=== PATIENT | female | born 1940 | race Hispanic/Latino ===

== ENCOUNTER 2018-02-19 23:51 | Emergency (ER) | payer MEDICARE ==
[~2018-02-19 23:51] MED LIST: ASPI-1114 PO; ATOR20TA65 PO; BUME1TAB12 PO; CARV12.511 PO; CITRACAL + D3 PO; FE F1CAP8 PO; FLUT16H NASAL; FLUT1AER IH; GLIM1TAB2 PO; LATA2.5D2 OU; LEVO25TA54 PO; LINA5TAB PO; MONT10TA24 PO; ONE A DAY MVI PO; RIVA15TA PO
[2018-02-20 00:10] LABS: BASOPHILS % (AUTO) 0.2 % (0.0-5.0); EOSINOPHILS % (AUTO) 1.7 % (0.0-8.0); HEMATOCRIT 32.6 % (36-48); LYMPHOCYTES % (AUTO) 8.7 % (21.0-51.0); MEAN CORPUSCULAR HEMOGLOBIN 32.3 pg (27.0-33.0); MEAN CORPUSCULAR HGB CONC 34.5 g/dL (32.0-36.0); MEAN CORPUSCULAR VOLUME 93.5 fL (79-99); MONOCYTES % (AUTO) 1.1 % (3.0-13.0); NEUTROPHILS % (AUTO) 88.3 % (40.0-77.0); PLATELET COUNT (AUTO) 143 K/uL (130-400); RED BLOOD CELL COUNT(AUTO) 3.49 MIL/uL (4.00-5.50); RED CELL DISTRIBUTION WIDTH 12.1 % (11.0-15.5); WHITE BLOOD COUNT (AUTO) 9.6 K/uL (4.8-10.8)
[2018-02-20] MEDS ORDERED: SODIUM CHLORIDE 0.9% 1000ML 1,000 ML IV ONE (00:23)
[2018-02-20] MEDS ORDERED: CEFTRIAXONE SODIUM 2 GM VIAL ONE (00:24)
[2018-02-20] MEDS ORDERED: ACETAMINOPHEN EXTRA STRENGTH 500 MG TABLET ONE (00:24)
[2018-02-20 00:28] LABS: ALBUMIN 3.8 g/dL (3.5-5.0); BILIRUBIN,DIRECT 0.1 mg/dL (0.0-0.3); BILIRUBIN,TOTAL 0.5 mg/dL (0.2-1.0); CREATININE 3.3 mg/dL (0.5-1.5); POTASSIUM 4.1 mmol/L (3.5-5.1); TOTAL PROTEIN, SERUM 7.9 g/dL (6.0-8.3)
[2018-02-20] MEDS ORDERED: ONDANSETRON HCL 4 MG/2 ML VIAL ONE (00:45)
[2018-02-20 01:50] LABS: APPEARANCE,URINE Clear (CLEAR); BILIRUBIN,URINE Negative (NEGATIVE); COLOR,URINE Yellow (YELLOW); GLUCOSE, URINE (UA) Negative (NEGATIVE); KETONES,URINE Negative (NEGATIVE); LEUKOCYTE ESTERASE ,URINE Trace (NEGATIVE); NITRATE,URINE Negative (NEGATIVE); OCCULT BLOOD,URINE Negative (NEGATIVE); PH,URINE 7.5 (5.0-8.0); PROTEIN,URINE POS 1+ (NEGATIVE); UROBILINOGEN,URINE 0.2 mg/dL (0.2-1.0)
[2018-02-20 02:04] LABS: BACTERIA,URINE None Seen /HPF (None Seen); MUCUS,URINE Few LPF (None Seen); RBC,URINE None Seen /HPF (0-1); SQUAMOUS EPITHELIAL CELL,UR Few /HPF (0-2); WBC,URINE 0-1 /HPF (0-1)
== END 2018-02-20 02:43 | disposition home or self-care (01) ==
LOC: EDH 23:51
DX: I12.9 Hypertensive chronic kidney disease with stage 1 through stage 4 chronic kidney disease, or unspecified chronic kidney disease (principal); E11.22 Type 2 diabetes mellitus with diabetic chronic kidney disease; N18.9 Chronic kidney disease, unspecified; E86.0 Dehydration; K52.9 Noninfective gastroenteritis and colitis, unspecified; I25.10 Atherosclerotic heart disease of native coronary artery without angina pectoris; J44.9 Chronic obstructive pulmonary disease, unspecified
CPT/HCPCS: 36415; 71045; 74176; 80048; 80076; 81001; 83690; 84484; 85025; 87040; 87804 ×2; 93005; 96361; 96374; 96375; 99285; J0696; J2405; J7030

== ENCOUNTER → 2018-12-31 | Outpatient (CLI) | payer MEDICARE | END | disposition home or self-care (01) | LOC: RAH 09:28 | PROVIDERS: ATTEND Family Medicine | DX: R10.9 Unspecified abdominal pain (principal) | CPT/HCPCS: 76700 ==

== ENCOUNTER 2019-01-02 17:16 | Emergency (ER) | payer MEDICARE ==
[2019-01-02 18:05] LABS: BASOPHILS % (AUTO) 0.6 % (0.0-5.0); EOSINOPHILS % (AUTO) 4.7 % (0.0-8.0); HEMATOCRIT 25.7 % (36-48); LYMPHOCYTES % (AUTO) 22.2 % (21.0-51.0); MEAN CORPUSCULAR HEMOGLOBIN 32.5 pg (27.0-33.0); MEAN CORPUSCULAR HGB CONC 33.5 g/dL (32.0-36.0); MEAN CORPUSCULAR VOLUME 97.1 fL (79-99); MONOCYTES % (AUTO) 7.4 % (3.0-13.0); NEUTROPHILS % (AUTO) 65.1 % (40.0-77.0); PLATELET COUNT (AUTO) 136 K/uL (130-400); RED BLOOD CELL COUNT(AUTO) 2.64 MIL/uL (4.00-5.50); RED CELL DISTRIBUTION WIDTH 12.4 % (11.0-15.5); WHITE BLOOD COUNT (AUTO) 6.9 K/uL (4.8-10.8)
[2019-01-02 18:25] LABS: ALBUMIN 3.4 g/dL (3.5-5.0); BILIRUBIN,TOTAL 0.4 mg/dL (0.2-1.0); CREATININE 3.7 mg/dL (0.5-1.5); POTASSIUM 4.8 mmol/L (3.5-5.1); TOTAL PROTEIN, SERUM 6.5 g/dL (6.0-8.3)
[2019-01-02 19:25] LABS: APPEARANCE,URINE Clear (CLEAR); BILIRUBIN,URINE Large (NEGATIVE); COLOR,URINE Dark Yellow (YELLOW); GLUCOSE, URINE (UA) Negative (NEGATIVE); KETONES,URINE Negative (NEGATIVE); LEUKOCYTE ESTERASE ,URINE Trace (NEGATIVE); NITRATE,URINE Positive (NEGATIVE); OCCULT BLOOD,URINE Negative (NEGATIVE); PH,URINE 6.5 (5.0-8.0); PROTEIN,URINE Negative (NEGATIVE)
[2019-01-02 19:37] LABS: MUCUS,URINE Few LPF (None Seen)
[2019-01-02 19:42] LABS: CALCIUM OXALATE CRYSTALS,UR Few /LPF (None Seen)
[2019-01-02 19:43] LABS: BACTERIA,URINE Moderate /HPF (None Seen)
[2019-01-02] MEDS ORDERED: MAG HYDROX/AL HYDROX/SIMETH ES 30 ML SUSP UDCUP ONE (20:33)
[2019-01-02] MEDS ORDERED: LIDOCAINE HCL 2% VISCOUS 15 ML UDCUP ONE (20:33)
== END 2019-01-02 21:42 | disposition home or self-care (01) ==
LOC: EDH 17:16
DX: K29.00 Acute gastritis without bleeding (principal); J44.9 Chronic obstructive pulmonary disease, unspecified; E10.9 Type 1 diabetes mellitus without complications; I10 Essential (primary) hypertension; I25.10 Atherosclerotic heart disease of native coronary artery without angina pectoris; Z90.710 Acquired absence of both cervix and uterus; Z98.890 Other specified postprocedural states; Z87.891 Personal history of nicotine dependence
CPT/HCPCS: 36415; 74176; 80053; 81001; 84484; 85025; 86677; 93005; 96360; 96361

== ENCOUNTER → 2019-02-22 | Outpatient (CLI) | payer MEDICARE | END | disposition home or self-care (01) | LOC: RAH 10:47 | PROVIDERS: ATTEND Family Medicine | DX: E11.43 Type 2 diabetes mellitus with diabetic autonomic (poly)neuropathy (principal); R10.9 Unspecified abdominal pain; R14.0 Abdominal distension (gaseous) | CPT/HCPCS: 78264; A9541 ==

== ENCOUNTER 2019-06-07 19:51 | Inpatient (IN) | payer MEDICARE ==
[~2019-06-07] VITALS: Ht 157.5 cm; Wt 71.8 kg
[~2019-06-07 19:51] MED LIST changes: -BUME1TAB12 PO; +BUME1TAB6 PO
[2019-06-07 20:40] LABS: BASOPHILS % (AUTO) 0.6 % (0.0-5.0); HEMATOCRIT 29.9 % (36-48); LYMPHOCYTES % (AUTO) 25.1 % (21.0-51.0); MEAN CORPUSCULAR HEMOGLOBIN 32.6 pg (27.0-33.0); MEAN CORPUSCULAR HGB CONC 34.2 g/dL (32.0-36.0); MEAN CORPUSCULAR VOLUME 95.2 fL (79-99); MONOCYTES % (AUTO) 8.6 % (3.0-13.0); NEUTROPHILS % (AUTO) 64.7 % (40.0-77.0); PLATELET COUNT (AUTO) 125 K/uL (130-400); RED BLOOD CELL COUNT(AUTO) 3.14 MIL/uL (4.00-5.50); RED CELL DISTRIBUTION WIDTH 13.9 % (11.0-15.5); WHITE BLOOD COUNT (AUTO) 6.2 K/uL (4.8-10.8)
[2019-06-07 21:01] LABS: B-TYPE NATRIURETIC PEPTIDE 1110 pg/mL (0-100); INR 1.18 (0.85-1.15); PARTIAL THROMBOPLASTIN TIME 31.4 SEC (26.3-35.5); PROTHROMBIN TIME 12.3 SEC (9.6-11.6)
[2019-06-07 21:02] LABS: APPEARANCE,URINE Clear (CLEAR); BILIRUBIN,URINE Negative (NEGATIVE); COLOR,URINE Yellow (YELLOW); GLUCOSE, URINE (UA) Negative (NEGATIVE); KETONES,URINE Negative (NEGATIVE); LEUKOCYTE ESTERASE ,URINE Small (NEGATIVE); NITRATE,URINE Negative (NEGATIVE); OCCULT BLOOD,URINE Small (NEGATIVE); PH,URINE 7.5 (5.0-8.0); PROTEIN,URINE 300 mg/dL (NEGATIVE); UROBILINOGEN,URINE 0.2 mg/dL (0.2-1.0)
[2019-06-07 21:04] LABS: ALBUMIN 3.2 g/dL (3.5-5.0); BILIRUBIN,TOTAL 0.4 mg/dL (0.2-1.0); CREATININE 2.9 mg/dL (0.5-1.5); POTASSIUM 5.3 mmol/L (3.5-5.1); TOTAL PROTEIN, SERUM 6.5 g/dL (6.0-8.3)
[2019-06-07 21:10] LABS: BACTERIA,URINE Few /HPF (None Seen); MUCUS,URINE Few LPF (None Seen)
[2019-06-07] MEDS ORDERED: CLONIDINE HCL 0.1 MG TABLET ONE (21:11)
[2019-06-07] MEDS ORDERED: HYDRALAZINE HCL 25 MG TABLET ONE (21:51)
[2019-06-07] MEDS ORDERED: SODIUM CHLORIDE 0.9% 250 ML IV ONE (22:29)
[2019-06-08] MEDS ORDERED: HYDRALAZINE HCL 20 MG/ML VIAL IV PRN (00:30)
[2019-06-08] MEDS ORDERED: ASPIRIN 325 MG TABLET ONE (08:21)
[2019-06-08] MEDS ORDERED: HEPARIN SODIUM 5000UNIT/ML 1ML VIAL ONE (08:21)
[2019-06-08] MEDS ORDERED: FAMOTIDINE/PF 20 MG/2 ML VIAL IV ONE (08:22)
[2019-06-08] MEDS ORDERED: HYDRALAZINE HCL 20 MG/ML VIAL ONE (08:39)
[2019-06-08] MEDS: FAMOTIDINE/PF 20 MG/2 ML VIAL IV SCH (09:00)
[2019-06-08] MEDS: ASPIRIN 325 MG TABLET PO SCH (09:00)
[2019-06-08 19:40] VITALS: BP 175/76
[2019-06-08] MEDS: LABETALOL HCL 100 MG TABLET PO SCH (20:48)
[2019-06-08] MEDS: HEPARIN SODIUM 5000UNIT/ML 1ML VIAL SQ SCH (20:49)
[2019-06-08 23:29] VITALS: BP 150/57
[2019-06-09 00:58] VITALS: BP 176/58
[2019-06-09 03:48] VITALS: BP 128/51
[2019-06-09 08:00] VITALS: BP 138/56
[2019-06-09] MEDS: LABETALOL HCL 100 MG TABLET PO SCH ×2 (09:34→14:00)
[2019-06-09] MEDS: ASPIRIN 325 MG TABLET PO SCH (09:34)
[2019-06-09] MEDS: FAMOTIDINE/PF 20 MG/2 ML VIAL IV SCH (09:34)
[2019-06-09] MEDS: HEPARIN SODIUM 5000UNIT/ML 1ML VIAL SQ SCH (09:36)
[2019-06-09] MEDS ORDERED: AMLODIPINE BESYLATE 5 MG TAB PO SCH (11:45)
[2019-06-09 12:00] VITALS: BP 132/84
[2019-06-09 12:39] LABS: CREATININE 2.8 mg/dL (0.5-1.5); POTASSIUM 5.1 mmol/L (3.5-5.1)
--- NOTE | 2019-06-09 15:18 | NUR ---
PATIENT SIGNED OUT AMA. SHE VOICED THAT SHE HAD COME IN WITH HYPERTENSION AND NOW THAT HER BP IS BETTER THERE IS NO REASON FOR HER TO STAY. I INFORMED HER THAT MD HAD ORDERED FOR CARDIO AND NEPHRO TO BE CONSULTED BUT SHE SAID THAT SHE ALREADY KNOWS ABOUT HER CAROTID STENOSIS AND HER ELEVATED CREATININE AND THAT SHE CAN JUST F/U WITH DR. MARR AND DR. ANDERSEN OUTPATIENT. INFORMED DR. HENDRIX. ABOUT THIS. PIV REMOVED. TIP WAS INTACT. TELE PACK REMOVED AND RETURNED. ALL BELONGINGS WERE PACKED.
[2019-06-09] MEDS ORDERED: ATORVASTATIN CALCIUM 40 MG TABLET PO SCH (21:00)
== END 2019-06-09 14:50 | disposition left against medical advice (07) | DRG 305 ==
LOC: EDH 19:51 → EDHIP 06-08 00:01 → 4CH 06-08 18:46
PROVIDERS: ADMIT Internal Medicine; ATTEND Internal Medicine
DX: I16.0 Hypertensive urgency (principal); N18.5 Chronic kidney disease, stage 5; E87.70 Fluid overload, unspecified; I12.0 Hypertensive chronic kidney disease with stage 5 chronic kidney disease or end stage renal disease; I25.10 Atherosclerotic heart disease of native coronary artery without angina pectoris; Z95.1 Presence of aortocoronary bypass graft; F41.1 Generalized anxiety disorder; Z53.21 Procedure and treatment not carried out due to patient leaving prior to being seen by health care provider; I65.29 Occlusion and stenosis of unspecified carotid artery; Z82.0 Family history of epilepsy and other diseases of the nervous system; Z82.3 Family history of stroke; Z82.49 Family history of ischemic heart disease and other diseases of the circulatory system; Z82.5 Family history of asthma and other chronic lower respiratory diseases; Z83.3 Family history of diabetes mellitus; Z87.891 Personal history of nicotine dependence
CPT/HCPCS: 36415; 70450; 71045; 76770; 80048; 80053; 81001; 82550; 82948; 83880; 84484; 85025; 85610; 85730; 93005; 93880; G0378; J0360; J1644; J3490; J7030

== ENCOUNTER 2019-08-15 05:10 | Inpatient (IN) | payer MEDICARE ==
[2019-08-15] VITALS (10 sets, daily range): BP systolic 153–175; BP diastolic 6–109
[~2019-08-15] VITALS: Ht 165.1 cm; Wt 72.6 kg
[~2019-08-15 05:10] MED LIST changes: -GLIM1TAB2 PO; +GLIM1TAB3 PO
[2019-08-15 06:12] LABS: APPEARANCE,URINE Clear (CLEAR); BILIRUBIN,URINE Negative (NEGATIVE); COLOR,URINE Yellow (YELLOW); GLUCOSE, URINE (UA) Negative (NEGATIVE); KETONES,URINE Negative (NEGATIVE); LEUKOCYTE ESTERASE ,URINE Trace (NEGATIVE); NITRATE,URINE Negative (NEGATIVE); OCCULT BLOOD,URINE Trace (NEGATIVE); PROTEIN,URINE POS 1+ mg/dL (NEGATIVE); UROBILINOGEN,URINE 0.2 mg/dL (0.2-1.0)
[2019-08-15 06:13] LABS: BASOPHILS % (AUTO) 0.5 % (0.0-5.0); EOSINOPHILS % (AUTO) 2.4 % (0.0-8.0); HEMATOCRIT 25.7 % (36-48); LYMPHOCYTES % (AUTO) 16.2 % (21.0-51.0); MEAN CORPUSCULAR HEMOGLOBIN 34.3 pg (27.0-33.0); MEAN CORPUSCULAR HGB CONC 34.9 g/dL (32.0-36.0); MEAN CORPUSCULAR VOLUME 98.2 fL (79-99); MONOCYTES % (AUTO) 8.5 % (3.0-13.0); NEUTROPHILS % (AUTO) 72.4 % (40.0-77.0); PLATELET COUNT (AUTO) 119 K/uL (130-400); RED BLOOD CELL COUNT(AUTO) 2.62 MIL/uL (4.00-5.50); RED CELL DISTRIBUTION WIDTH 12.9 % (11.0-15.5); WHITE BLOOD COUNT (AUTO) 6.5 K/uL (4.8-10.8)
[2019-08-15 06:21] LABS: ALBUMIN 3.1 g/dL (3.5-5.0); BILIRUBIN,TOTAL 0.5 mg/dL (0.2-1.0); CREATININE 3.7 mg/dL (0.5-1.5); INR 1.21 (0.85-1.15); PARTIAL THROMBOPLASTIN TIME 33.9 SEC (26.3-35.5); POTASSIUM 5.1 mmol/L (3.5-5.1); PROTHROMBIN TIME 12.6 SEC (9.6-11.6); TOTAL PROTEIN, SERUM 6.5 g/dL (6.0-8.3)
[2019-08-15 06:45] LABS: B-TYPE NATRIURETIC PEPTIDE 2840 pg/mL (0-100)
[2019-08-15 06:48] LABS: BACTERIA,URINE Rare /HPF (None Seen); RBC,URINE 0-1 /HPF (0-1); SQUAMOUS EPITHELIAL CELL,UR Rare /HPF (0-2); WBC,URINE 0-1 /HPF (0-1)
[2019-08-15] MEDS ORDERED: ACETAMINOPHEN 325 MG TAB PO PRN ×3 (08:15→20:45)
[2019-08-15] MEDS ORDERED: ONDANSETRON HCL 4 MG/2 ML VIAL IVP PRN (08:15)
[2019-08-15] MEDS ORDERED: BUMETANIDE 0.25 MG/ML 10 ML 40 ML IV SCH (08:15)
[2019-08-15] MEDS ORDERED: HYDRALAZINE HCL 20 MG/ML VIAL IV PRN ×2 (08:15→09:15)
[2019-08-15] MEDS ORDERED: MORPHINE SULFATE 2 MG/ML 1ML SYG IV PRN (09:15)
[2019-08-15] MEDS ORDERED: ONDANSETRON HCL 4 MG/2 ML VIAL IV PRN (09:15)
[2019-08-15] MEDS: FAMOTIDINE/PF 20 MG/2 ML VIAL IV SCH ×2 (09:20→14:22)
[2019-08-15] MEDS ORDERED: DEXTROSE 50%-WATER 50 ML DISP.SYRIN IV PRN (10:00)
[2019-08-15] MEDS ORDERED: GLUCAGON 1MG KIT 1 MG ML IM PRN (10:00)
--- NOTE | 2019-08-15 10:00 | NUR ---
ADMISSION RECEIVED PT FROM ER, AMBULATING FROM GURNEY TO BATHROOM AND BACK TO BED, GAIT SLOW BUT STEADY WITH ASSIST, PT DOES C/O DYSPNEA ON EXERTION BUT DENIES PAIN, DIZZINESS OR LIGHTHEADEDNESS. PT IS A&OX3, CALM COOPERATIVE AND DOES NOT APPEAR TO BE IN ANY DISTRESS NOR ANY NEURO DEFICITS PRESENT. PT IS NPO FOR PENDING DIALYSIS CATHETER PLACEMENT BY I.R. CALL LIGHT WITHIN REACH, FAMILY AT BEDSIDE.
[2019-08-15] MEDS: INSULIN HUMULIN R 100 UNIT/ML 3ML SQ SCH ×3 (11:30→21:00)
[2019-08-15] MEDS ORDERED: INSU100V37 SQ (11:31)
[2019-08-15] MEDS ORDERED: MELA1TAB21 PO (11:31)
[2019-08-15] MEDS ORDERED: RIVA15TA PO (11:31)
[2019-08-15] MEDS ORDERED: FE F1CAP8 PO (11:31)
[2019-08-15] MEDS ORDERED: ATOR40TA69 PO (11:31)
[2019-08-15] MEDS ORDERED: CALC-1103 PO (11:31)
[2019-08-15] MEDS ORDERED: MV-M1TAB57 PO (11:31)
[2019-08-15] MEDS ORDERED: LEVO25TA9 PO (11:31)
[2019-08-15] MEDS ORDERED: ACET-66 PO (11:31)
[2019-08-15] MEDS ORDERED: FLUT16H NASAL (11:31)
[2019-08-15] MEDS ORDERED: PANT40TA25 PO (11:31)
[2019-08-15] MEDS ORDERED: AMLO5TAB9 PO (11:31)
[2019-08-15] MEDS ORDERED: LINA5TAB PO (11:31)
[2019-08-15] MEDS ORDERED: PROP10DR2 OU (11:31)
[2019-08-15] MEDS ORDERED: FAMO-136 PO (11:31)
[2019-08-15] MEDS ORDERED: BUME1TAB6 PO (11:31)
[2019-08-15] MEDS ORDERED: LISINOPRIL 20 MG TABLET PO SCH (13:30)
[2019-08-15] MEDS: IRON SUCROSE COMPLEX 100 MG in SODIUM CHLORIDE 0.9% 50 ML IV SCH (14:38)
[2019-08-15] MEDS ORDERED: LIDOCAINE HCL 1% MDV 50ML VIAL ONE (15:25)
[2019-08-15] MEDS ORDERED: SODIUM CHLORIDE 0.9% 1000ML 1,000 ML IV PRN (20:45)
[2019-08-15] MEDS ORDERED: NITROGLYCERIN 0.4 MG SL TAB SL PRN (20:45)
[2019-08-15] MEDS ORDERED: 0.9% SODIUM CHLORIDE 1000 ML IV BAG IV PRN (20:45)
[2019-08-15 20:48] LABS: HEMATOCRIT 25.4 % (36-48)
[2019-08-15 21:02] LABS: CREATININE 2.5 mg/dL (0.5-1.5)
[2019-08-15 21:06] LABS: HEMOGLOBIN A1C 7.1 % (4.0-6.0)
[2019-08-15 21:18] LABS: % IRON SATURATION 63.4 % (22-44)
[2019-08-16] MEDS ORDERED: HYDROXYZINE HCL 25 MG TABLET PO SCH (01:00)
[2019-08-16] MEDS ORDERED: HYDROXYZINE HCL 25 MG TABLET ONE (02:28)
[2019-08-16 03:04] VITALS: BP 150/52
[2019-08-16 03:53] LABS: BASOPHILS % (AUTO) 0.7 % (0.0-5.0); EOSINOPHILS % (AUTO) 2.1 % (0.0-8.0); HEMATOCRIT 24.7 % (36-48); MEAN CORPUSCULAR HEMOGLOBIN 33.9 pg (27.0-33.0); MEAN CORPUSCULAR HGB CONC 34.6 g/dL (32.0-36.0); MEAN CORPUSCULAR VOLUME 98.1 fL (79-99); NEUTROPHILS % (AUTO) 69.2 % (40.0-77.0); PLATELET COUNT (AUTO) 117 K/uL (130-400); RED BLOOD CELL COUNT(AUTO) 2.51 MIL/uL (4.00-5.50); WHITE BLOOD COUNT (AUTO) 6.1 K/uL (4.8-10.8)
[2019-08-16 04:05] LABS: ALBUMIN 2.7 g/dL (3.5-5.0); BILIRUBIN,TOTAL 0.6 mg/dL (0.2-1.0); CREATININE 2.3 mg/dL (0.5-1.5); POTASSIUM 3.7 mmol/L (3.5-5.1); TOTAL PROTEIN, SERUM 5.8 g/dL (6.0-8.3)
[2019-08-16 06:11] LABS: HEPATITIS A ANTIBODY IGM Negative (Negative); HEPATITIS B CORE IGM Negative (Negative); HEPATITIS Bs ANTIGEN SCREEN P Negative (Negative)
[2019-08-16] MEDS: INSULIN HUMULIN R 100 UNIT/ML 3ML SQ SCH ×4 (06:25→21:00)
[2019-08-16 07:35] VITALS: BP 130/62
[2019-08-16] MEDS: HEPARIN SODIUM 5000UNIT/ML 1ML VIAL IJ PRN (11:12)
[2019-08-16] MEDS: FAMOTIDINE/PF 20 MG/2 ML VIAL IV SCH (11:19)
[2019-08-16] MEDS: IRON SUCROSE COMPLEX 100 MG in SODIUM CHLORIDE 0.9% 50 ML IV SCH (11:19)
[2019-08-16] MEDS: LISINOPRIL 20 MG TABLET PO SCH (11:20)
[2019-08-16] MEDS: ENOXAPARIN SODIUM 30 MG/0.3 ML SQ SCH (11:21)
[2019-08-16] MEDS: ASPIRIN 81MG TAB.CHEW PO SCH (11:23)
[2019-08-16 11:25] VITALS: BP 140/52
--- NOTE | 2019-08-16 12:00 | NUR ---
cm note met with patient and updated on md orders for dialysis, pt in agreement to go to [facility] dialysis, pt resides in [place]. states she can get transport from medicaid transport. or provider[facility] prefers in am. informed [facility], and [facility] uses the 1st shift only for now, as they are a new facility. choice letter obtained, and referral faxed to [facility] admission center. with all clinical info requested, just pending HD treatment note for HD pending. as 3rd dialysis. call made to confirm spoke to Tawanda in admissions, and states has received the clinical and is pending to be reviewed will let cm know when approved.
[2019-08-16] MEDS ORDERED: COMPOUND IV MISC 1 EACH IVSOLN MISC PRN (12:30)
[2019-08-16 15:15] VITALS: BP 147/64
--- NOTE | 2019-08-16 17:25 | NUR ---
DC PLAN PATIENT STATES SHE REQUIRES SOME ASSISTANCE WITH BATHING, LIVES ALONE, HAS PROVIDER 41/2 HRS DAILY WEEKDAY AND 4HR ON WEEKENDS, HAS WALKER, CANE, WHEELCHAIR, CPAP, SHOWER CHAIR AND HOSPITAL BED. PER PATIENT, FEELS SAFE TO RETURN HOME. Addendum: 08/16/19 at 1728 by REED GRANT Amended: Links added.
--- NOTE | 2019-08-16 19:40 | NUR ---
PM Assessment Received pt with no family around, pleasantly conversant, routine assessment done, noted left arm with vera = vein mopping. Per pt asking when is the plan surgery for her arm, inform that we are still pending order from the surgeon. Pt confirmed awareness regarding plan set up for outpt hemodialysis in [facility]. Pt made aware the I will activate her bed alarm just incase she forgets to call for assistance when getting out of bed, agreed. Pt currently denies discomfort.
[2019-08-16 20:03] VITALS: BP 135/47
[2019-08-16] MEDS: PHARMACY COMMUNICATION MISC SCH (20:45)
[2019-08-16] MEDS ORDERED: EPOETIN ALFA 10,000 UNIT/ML VIAL SQ SCH (21:00)
[2019-08-16] MEDS: ATORVASTATIN CALCIUM 20 MG TABLET PO SCH (22:13)
[2019-08-17 00:14] VITALS: BP 131/46
[2019-08-17] MEDS: PHARMACY COMMUNICATION MISC SCH ×3 (00:33→20:45)
[2019-08-17 04:22] VITALS: BP 141/49
[2019-08-17 05:30] LABS: HEMATOCRIT 24.9 % (36-48); MEAN CORPUSCULAR HEMOGLOBIN 35.1 pg (27.0-33.0); MEAN CORPUSCULAR HGB CONC 35.3 g/dL (32.0-36.0); MEAN CORPUSCULAR VOLUME 99.6 fL (79-99); PLATELET COUNT (AUTO) 108 K/uL (130-400); WHITE BLOOD COUNT (AUTO) 5.8 K/uL (4.8-10.8)
[2019-08-17 05:45] LABS: CREATININE 2.6 mg/dL (0.5-1.5); POTASSIUM 4.3 mmol/L (3.5-5.1)
[2019-08-17] MEDS: INSULIN HUMULIN R 100 UNIT/ML 3ML SQ SCH ×4 (05:53→20:39)
[2019-08-17 08:04] VITALS: BP 140/64
[2019-08-17 08:11] LABS: HEPATITIS Bs ANTIGEN SCREEN P Negative (Negative)
[2019-08-17] MEDS: LISINOPRIL 20 MG TABLET PO SCH (09:20)
[2019-08-17] MEDS: FAMOTIDINE/PF 20 MG/2 ML VIAL IV SCH (09:20)
[2019-08-17] MEDS: ASPIRIN 81MG TAB.CHEW PO SCH (09:20)
[2019-08-17] MEDS: ENOXAPARIN SODIUM 30 MG/0.3 ML SQ SCH (09:21)
[2019-08-17 11:47] VITALS: BP 147/60
[2019-08-17] MEDS: IRON SUCROSE COMPLEX 100 MG in SODIUM CHLORIDE 0.9% 50 ML IV SCH (11:55)
[2019-08-17] MEDS: HEPARIN SODIUM 5000UNIT/ML 1ML VIAL IJ PRN (12:00)
[2019-08-17 15:29] VITALS: BP 141/58
[2019-08-17 20:06] VITALS: BP 151/52
[2019-08-17] MEDS: ATORVASTATIN CALCIUM 20 MG TABLET PO SCH (20:34)
[2019-08-18 00:24] VITALS: BP 139/40
[2019-08-18 04:14] LABS: CREATININE 2.7 mg/dL (0.5-1.5); POTASSIUM 4.1 mmol/L (3.5-5.1)
[2019-08-18 04:22] VITALS: BP 142/58
[2019-08-18] MEDS: INSULIN HUMULIN R 100 UNIT/ML 3ML SQ SCH ×4 (05:19→20:57)
[2019-08-18] MEDS: PHARMACY COMMUNICATION MISC SCH ×3 (07:12→20:49)
[2019-08-18 07:58] VITALS: BP 154/41
[2019-08-18] MEDS: ASPIRIN 81MG TAB.CHEW PO SCH (08:44)
[2019-08-18] MEDS: FAMOTIDINE/PF 20 MG/2 ML VIAL IV SCH (08:44)
[2019-08-18] MEDS: LISINOPRIL 20 MG TABLET PO SCH (08:45)
[2019-08-18] MEDS: ENOXAPARIN SODIUM 30 MG/0.3 ML SQ SCH (08:46)
[2019-08-18] MEDS: IRON SUCROSE COMPLEX 100 MG in SODIUM CHLORIDE 0.9% 50 ML IV SCH (08:46)
[2019-08-18 11:41] VITALS: BP 142/48
[2019-08-18] MEDS: ACETAMINOPHEN 325 MG TAB PO PRN ×2 (15:18→23:50)
[2019-08-18 15:40] VITALS: BP 152/52
[2019-08-18 19:50] VITALS: BP 179/56
[2019-08-18] MEDS: ATORVASTATIN CALCIUM 20 MG TABLET PO SCH (20:40)
[2019-08-19] VITALS (19 sets, daily range): BP systolic 106–169; BP diastolic 33–64
[2019-08-19 05:10] LABS: HEMATOCRIT 27.1 % (36-48); MEAN CORPUSCULAR HEMOGLOBIN 35.2 pg (27.0-33.0); MEAN CORPUSCULAR HGB CONC 35.2 g/dL (32.0-36.0); MEAN CORPUSCULAR VOLUME 99.9 fL (79-99); PLATELET COUNT (AUTO) 115 K/uL (130-400); RED BLOOD CELL COUNT(AUTO) 2.71 MIL/uL (4.00-5.50); RED CELL DISTRIBUTION WIDTH 12.9 % (11.0-15.5); WHITE BLOOD COUNT (AUTO) 7.1 K/uL (4.8-10.8)
[2019-08-19 05:24] LABS: INR 1.1 (0.85-1.15); PARTIAL THROMBOPLASTIN TIME 33.1 SEC (26.3-35.5); PROTHROMBIN TIME 11.5 SEC (9.6-11.6)
[2019-08-19 05:29] LABS: CREATININE 3.9 mg/dL (0.5-1.5); POTASSIUM 4.3 mmol/L (3.5-5.1)
[2019-08-19] MEDS: INSULIN HUMULIN R 100 UNIT/ML 3ML SQ SCH ×4 (05:44→21:00)
[2019-08-19] MEDS ORDERED: PAPAVERINE HCL 30 MG/ML 2ML VIAL ONE (07:05)
[2019-08-19] MEDS ORDERED: BACITRACIN 50,000 UNIT VIAL ONE (07:05)
--- NOTE | 2019-08-19 07:10 | NUR ---
STATUS PT TAKEN TO PRE-OP HOLDING VIA BED.
[2019-08-19] MEDS ORDERED: DEXAMETHASONE SOD PHOSPHATE 10MG/ML 1ML VIAL ONE (07:36)
[2019-08-19] MEDS ORDERED: GLYCOPYRROLATE 1 MG/5 ML SYRINGE ONE (07:36)
[2019-08-19] MEDS ORDERED: PROPOFOL 10 MG/ML 20ML VIAL IV ONE (07:36)
[2019-08-19] MEDS ORDERED: NEOSTIGMINE 5MG/5ML SYR IV ONE (07:36)
[2019-08-19] MEDS ORDERED: SUCCINYLCHOLINE 200MG/10ML SYR ONE (07:36)
[2019-08-19] MEDS ORDERED: LIDOCAINE PF 2% 5ML ABBOJECT ONE (07:36)
[2019-08-19] MEDS ORDERED: MIDAZOLAM HCL 1 MG/ML 2ML VIAL ONE ×2 (07:36→08:36)
[2019-08-19] MEDS ORDERED: ONDANSETRON HCL 4 MG/2 ML VIAL ONE (07:36)
[2019-08-19] MEDS ORDERED: FENTANYL CITRATE PF 50 MCG/1 ML 2ML VIAL ONE (07:37)
[2019-08-19] MEDS ORDERED: ROCURONIUM 10MG/1ML SYR 10 MG/ML ML ONE (07:37)
[2019-08-19] MEDS ORDERED: ROPIVACAINE 0.5% 5MG/ML 30ML IJ ONE (07:38)
[2019-08-19] MEDS: CEFAZOLIN SODIUM 1 GM VIAL IVP PRN ×2 (07:44→07:45)
[2019-08-19] MEDS: ENOXAPARIN SODIUM 30 MG/0.3 ML SQ SCH (09:00)
[2019-08-19] MEDS: FAMOTIDINE 20MG TAB 20 MG TAB PO SCH (09:50)
[2019-08-19] MEDS: ASPIRIN 81MG TAB.CHEW PO SCH (09:51)
[2019-08-19] MEDS: LISINOPRIL 20 MG TABLET PO SCH (09:51)
[2019-08-19] MEDS ORDERED: LISINOPRIL 20 MG TABLET ONE (09:52)
[2019-08-19] MEDS: IRON SUCROSE COMPLEX 100 MG in SODIUM CHLORIDE 0.9% 50 ML IV SCH (10:02)
[2019-08-19] MEDS: ATORVASTATIN CALCIUM 20 MG TABLET PO SCH (20:42)
[2019-08-20 03:33] VITALS: BP 145/57
[2019-08-20] MEDS: INSULIN HUMULIN R 100 UNIT/ML 3ML SQ SCH ×4 (05:30→21:37)
--- NOTE | 2019-08-20 07:18 | NUR ---
Pt. resting comfortably, newly placed JACLYN with bruit and thrill but faint.on auscultation and palpation.Pt. able to move left hand and left radial pulse is appreciated.Bedside report given to incoming NOD using SBAr all questions answered.Bed exit activated.
[2019-08-20 07:58] VITALS: BP 140/58
--- NOTE | 2019-08-20 08:00 | NUR ---
AM ASSESSMENT PT LAYING IN BED, RESTING. A/O X 3. NO SOB. NO DISTRESS NOTED. DENIES CHEST PAIN OR DISCOMFORT. DENIES PALPITATIONS. DENIES INCISIONAL PAIN. TELE: SR 60s. JAY AV-FISTULA, POD # 1, DSG DRY & INTACT. NO DRAINAGE NOTED. (+) THRILL/(+) BRUIT. LT ARM PRECAUTIONS REINFORCED. HD MWF, RSC PERMACATH. BR W/BRP. UP W/ASSISTANCE. INSTRUCTED TO CALL FOR ASSISTANCE. CALL ISAURO W/IN REACH.
[2019-08-20] MEDS: IRON SUCROSE COMPLEX 100 MG in SODIUM CHLORIDE 0.9% 50 ML IV SCH (08:10)
[2019-08-20] MEDS: LISINOPRIL 20 MG TABLET PO SCH (08:11)
[2019-08-20] MEDS: ASPIRIN 81MG TAB.CHEW PO SCH (08:11)
[2019-08-20] MEDS: FAMOTIDINE 20MG TAB 20 MG TAB PO SCH (08:11)
[2019-08-20] MEDS: ENOXAPARIN SODIUM 30 MG/0.3 ML SQ SCH (08:16)
[2019-08-20] MEDS ORDERED: ACETAMINOPHEN-CODEINE 300/30MG TAB PO PRN ×2 (09:45)
[2019-08-20 11:51] VITALS: BP 119/56
--- NOTE | 2019-08-20 14:35 | NUR ---
LB AVILEZ CALLED [facility] LOCAL OFFICE LEFT SEVERAL MESSAGES. SPOKE TO MAIN OFFICE SAID THEY RECEIVED AND APPROVED. JUST NEED TO TOUCH BASE WITH LOCAL OFFICE FOR FINAL CHAIR TIME. THEY HAVE NOT ANSWERED FOR THEM WELL. Addendum: 08/20/19 at 1436 by KIKE ADLER RN CM Amended: Links added.
[2019-08-20 15:45] VITALS: BP 131/46
--- NOTE | 2019-08-20 18:55 | NUR ---
Nutrition Intervention: Nutrition screen based on LOS x 5 days. Pt. admitted with Dx CKD Stg 5/Fluid Overload. HD tx initiated. Pt. S/P AV Graft/Fistula JULIO CÉSAR(08/19/19). Pt. on 75gm CCD Renal dialysis diet with good p.o. intake, as per pt. Pt. states difficulty chewing due to being edentulous and has no dentures. Pt. requesting soft/chopped food. Pt. reports had low BS last night and would like an HS snack to prevent this from happening again. Labs reviewed(Alb 2.7, BUN 50, Creat 3.9, GFR 12). Spoke with pt. regarding protein supplementation and pt. agreed to try. LBM: 08/19/19, per pt. SR-20, elastic. Pt. and family member educated on Renal Dialysis diet and provided with education material. Pt. and family member verbalized understanding. Recommendations: 1) Rec. 75gm CCD Renal Dialysis Mech Soft Finely Chopped diet with HS snack. 2) Rec. 30ml ProMod TID with meals. 3) Renal Dialysis diet education given to pt. and family member. 4) Continue to monitor pt's nutritional status. 5) Consult RD as nutrition concerns arise. Addendum: 08/20/19 at [address] Amended: Links added.
[2019-08-20 19:01] VITALS: BP 139/59
[2019-08-20] MEDS: ATORVASTATIN CALCIUM 20 MG TABLET PO SCH (20:39)
[2019-08-20 23:14] VITALS: BP 121/49
[2019-08-21 03:24] VITALS: BP 121/40
[2019-08-21] MEDS: INSULIN HUMULIN R 100 UNIT/ML 3ML SQ SCH ×3 (05:48→16:30)
[2019-08-21] MEDS: ASPIRIN 81MG TAB.CHEW PO SCH (07:15)
[2019-08-21] MEDS: FAMOTIDINE 20MG TAB 20 MG TAB PO SCH (07:15)
[2019-08-21] MEDS: LISINOPRIL 20 MG TABLET PO SCH (07:15)
[2019-08-21] MEDS: ENOXAPARIN SODIUM 30 MG/0.3 ML SQ SCH (07:16)
[2019-08-21] MEDS: IRON SUCROSE COMPLEX 100 MG in SODIUM CHLORIDE 0.9% 50 ML IV SCH (07:16)
[2019-08-21] MEDS: ACETAMINOPHEN 325 MG TAB PO PRN (07:22)
[2019-08-21 07:31] VITALS: BP 120/49
--- NOTE | 2019-08-21 08:00 | NUR ---
ASSESSMENT PT IS AAOX3 DENIES CP DENIES SOB DENIES NV NO COMPLAINTS RESTING IN BED, AM MEDS GIVEN. CALL LIGHT WITHIN REACH. PENDING DIALYSIS TODAY, DIALYSIS NURSE AWARE.
--- NOTE | 2019-08-21 11:10 | NUR ---
PATIENT ON DIALYSIS TREATMENT IN ROOM, DIALYSIS NURSE AT BEDSIDE
[2019-08-21] MEDS ORDERED: TYL3B PO (11:25)
[2019-08-21] MEDS ORDERED: LISI-613 PO (11:25)
[2019-08-21] MEDS ORDERED: ASPI-1005 PO (11:25)
[2019-08-21 11:52] VITALS: BP 189/50
--- NOTE | 2019-08-21 12:22 | NUR ---
HEPARIN VIALS X2 GIVEN TO DIALYSIS NURSE ROSEANN TRIPATHI
--- NOTE | 2019-08-21 12:58 | NUR ---
DC PLAN PER PATIENT, DOES NOT HAVE TRANSPORTATION TO [facility] APPOINTMENTS. SET UP MADE WITH MEDICAID ASSISTANCE TRANSPORTATION FOR DIALYSIS APPOINTMENTS MWF IN AM. CONFORMATION NUMBERS FOR APPOINTMENTS TO BE GIVEN TO PATIENT WELL INFORMATION ON MEDICAID ASSISTED TRANSPORTATION.
--- NOTE | 2019-08-21 14:26 | NUR ---
DC PLAN VISITED WITH PATIENT. SAID DAUGHTER WAS NOT GOING TO BE ABLE TO TAKE HER TO DIALYSIS. SET UP MEDICAID TRANSPORT. MEDICAID CALLED BACK AT 1340 TO SAY THAT [facility] IS NOT MEDICAID YET. THEY HAVE NO NUMBER THEREFORE THEY CAN NOT BILL MEDICAID. NO TRANSPORT TO THAT FACILITY. CALLED DR. ANDERSEN TO LET HIM KNOW AND IF OKAY TO SEND TO DIFFERENT FACILITY. SAID OKAY SEND TO [facility]. PACKET SENT TO FACILITY. SPOKE TO MAIN OFFICE ABOUT SITUATION. SAID THEY WILL SEND PACKET TO [facility] INCLUD[facility] THE [facility]. SPOKE TO [facility] SAID THEY RECEIVED MY PACKET BUT NOT MAIN OFFICE INFO. NEED THEIRS TO START PROCESS. CM WILL CONTINUE TO FOLLOW. Addendum: 08/21/19 at 1437 by KIKE ADLER RN CM Amended: Links added.
[2019-08-21 15:25] VITALS: BP 114/40
--- NOTE | 2019-08-21 16:35 | NUR ---
DC PLAN DIALYSIS SET UP AT [facility] TTS AT 1300. TRANSPORTATION SERVICE SET UP WELL FOR [place] ON August BETWEEN 1200 TO 1230 WELL AUG 27 AND AUG 29. CONFIRMATION NUMBERS GIVEN TO PATIENT WELL APPOINTMENT DATE/TIME FOR DIALYSIS. NURSE MADE AWARE. PENDING DISCHARGE HOME.
--- NOTE | 2019-08-21 16:36 | NUR ---
DC TO HOME, CALLED DAUGHTER LEFT MESSAGE ON HER PHONE VIA PATIENTS CELL PHONE LETTING HER KNOW MOTHER HAS BEEN ACCEPTED TO NEW DIALYSIS FACILITY. AWAITING CALL BACK.
--- NOTE | 2019-08-21 17:44 | NUR ---
DC TO HOME PT AND FAMILY AND VERBALIZE DC INSTRUCTIONS UNDERSTANDING AGREE TO TAKE MEDICATIONS ORDERED AGREE TO GO TO DIALYSIS [facility] ORDERED. ALL QUESTIONS ANSWERED, PIV REMOVED CATH TIP INTACT, TELE PACK REMOVED. ALL BELONGINGS GATHERED DOWN VIA WC WITH FAMILY AND NURSE AIDE.
== END 2019-08-21 17:30 | disposition home or self-care (01) | DRG 264 ==
LOC: EDH 05:10 → EDHIP 07:15 → 2DH 09:41
PROVIDERS: ADMIT Internal Medicine; ATTEND Internal Medicine
PROC: 0JH60XZ Insertion of Tunneled Vascular Access Device into Chest Subcutaneous Tissue and Fascia, Open Approach (ICD-10-PCS; 2019-08-15)
PROC: 02H633Z Insertion of Infusion Device into Right Atrium, Percutaneous Approach (ICD-10-PCS; 2019-08-15)
PROC: 5A1D70Z Performance of Urinary Filtration, Intermittent, Less than 6 Hours Per Day (ICD-10-PCS; 2019-08-15)
PROC: 5A1D70Z Performance of Urinary Filtration, Intermittent, Less than 6 Hours Per Day (ICD-10-PCS; 2019-08-16)
PROC: 5A1D70Z Performance of Urinary Filtration, Intermittent, Less than 6 Hours Per Day (ICD-10-PCS; 2019-08-17)
PROC: 5A1D70Z Performance of Urinary Filtration, Intermittent, Less than 6 Hours Per Day (ICD-10-PCS; 2019-08-19)
PROC: 03180ZD Bypass Left Brachial Artery to Upper Arm Vein, Open Approach (ICD-10-PCS; principal; 2019-08-19 07:24)
PROC: 5A09357 Assistance with Respiratory Ventilation, Less than 24 Consecutive Hours, Continuous Positive Airway Pressure (ICD-10-PCS; 2019-08-20)
DX: I13.2 Hypertensive heart and chronic kidney disease with heart failure and with stage 5 chronic kidney disease, or end stage renal disease (principal); N18.6 End stage renal disease; J96.01 Acute respiratory failure with hypoxia; I50.20 Unspecified systolic (congestive) heart failure; I42.9 Cardiomyopathy, unspecified; I25.10 Atherosclerotic heart disease of native coronary artery without angina pectoris; E11.22 Type 2 diabetes mellitus with diabetic chronic kidney disease; J44.9 Chronic obstructive pulmonary disease, unspecified; D64.9 Anemia, unspecified; R07.89 Other chest pain; Z99.2 Dependence on renal dialysis; Z82.0 Family history of epilepsy and other diseases of the nervous system; Z82.3 Family history of stroke; Z82.49 Family history of ischemic heart disease and other diseases of the circulatory system; Z82.5 Family history of asthma and other chronic lower respiratory diseases; Z83.3 Family history of diabetes mellitus; Z87.891 Personal history of nicotine dependence; Z95.1 Presence of aortocoronary bypass graft
CPT/HCPCS: 36415; 36558; 71045; 77001; 80048; 80053; 80061; 80074; 81001; 82040; 82550; 82565; 82728; 82948; 83036; 83540; 83550; 83735; 83880; 84100; 84484; 84520; 85014; 85018; 85025; 85027; 85610; 85730; 86701; 86704; 86706; 86850; 86900; 86901; 86922; 87040; 87340; 87390; 87520; 90935; 93005; 93306; 93459; 93971; 99156; 99157; 99291; C1750; C1769; C1894; G0378; J0330; J0360; J0583; J0690; J0885; J1100; J1644; J1650; J1756; J1815; J2001; J2250; J2405; J2440; J2704; J2710; J2795; J3010; J3490; J7030; J7040; J7070; Q9967

== ENCOUNTER 2019-08-22 02:11 | Inpatient (IN) | payer MEDICARE ==
[2019-08-22] VITALS (17 sets, daily range): BP systolic 87–122; BP diastolic 35–49
[~2019-08-22] VITALS: Ht 160 cm; Wt 71.9 kg
[~2019-08-22 02:11] MED LIST changes: +ASPI-1005 PO; -ASPI-1114 PO; -ATOR20TA65 PO; +ATOR40TA69 PO; -BUME1TAB6 PO; +CALC-1103 PO; -CARV12.511 PO; -CITRACAL + D3 PO; -FLUT1AER IH; -GLIM1TAB3 PO; -LATA2.5D2 OU; -LEVO25TA54 PO; +LEVO25TA9 PO; +LISI-613 PO; +MELA1TAB21 PO; -MONT10TA24 PO; +MV-M1TAB57 PO; -ONE A DAY MVI PO; +PANT40TA25 PO; +PROP10DR2 OU; +TYL3B PO
[2019-08-22] MEDS ORDERED: ASPIRIN 325 MG TABLET ONE (02:43)
[2019-08-22] MEDS ORDERED: SODIUM CHLORIDE 0.9% 250 ML IV ONE ×3 (02:44→05:19)
[2019-08-22 02:46] LABS: PLATELET COUNT (AUTO) 130 K/uL (130-400)
[2019-08-22 02:52] LABS: CREATININE 3.7 mg/dL (0.5-1.5)
[2019-08-22 02:53] LABS: BASOPHILS % (AUTO) 0.5 % (0.0-5.0); HEMATOCRIT 26.1 % (36-48); INR 1.11 (0.85-1.15); LYMPHOCYTES % (AUTO) 10.9 % (21.0-51.0); MEAN CORPUSCULAR HEMOGLOBIN 34.7 pg (27.0-33.0); MEAN CORPUSCULAR HGB CONC 34.1 g/dL (32.0-36.0); MEAN CORPUSCULAR VOLUME 101.7 fL (79-99); MONOCYTES % (AUTO) 8.5 % (3.0-13.0); NEUTROPHILS % (AUTO) 79.1 % (40.0-77.0); PARTIAL THROMBOPLASTIN TIME 31.5 SEC (26.3-35.5); PROTHROMBIN TIME 11.6 SEC (9.6-11.6); RED BLOOD CELL COUNT(AUTO) 2.57 MIL/uL (4.00-5.50); RED CELL DISTRIBUTION WIDTH 13.2 % (11.0-15.5); WHITE BLOOD COUNT (AUTO) 9.3 K/uL (4.8-10.8)
[2019-08-22 02:58] LABS: BILIRUBIN,TOTAL 0.5 mg/dL (0.2-1.0); TOTAL PROTEIN, SERUM 6.2 g/dL (6.0-8.3)
[2019-08-22 03:12] LABS: B-TYPE NATRIURETIC PEPTIDE 2030 pg/mL (0-100)
[2019-08-22] MEDS ORDERED: NITROGLYCERIN 0.4 MG SL TAB SL PRN (04:00)
[2019-08-22] MEDS ORDERED: ONDANSETRON HCL 4 MG/2 ML VIAL IV PRN (04:00)
[2019-08-22] MEDS ORDERED: ACETAMINOPHEN 325 MG TAB PO PRN (04:00)
[2019-08-22] MEDS ORDERED: LACTULOSE 20 GM/30 ML UDCUP PO PRN (04:00)
[2019-08-22] MEDS ORDERED: MORPHINE SULFATE 2 MG/ML 1ML SYG IV PRN (04:00)
[2019-08-22] MEDS ORDERED: HEPARIN SODIUM 5000UNIT/ML 1ML VIAL ONE (04:02)
[2019-08-22] MEDS ORDERED: HEPARIN 25000 UNITS/250 ML D5W 250 ML IV ONE (04:03)
[2019-08-22] MEDS ORDERED: ASPIRIN 325 MG TABLET PO SCH (09:00)
[2019-08-22] MEDS: METOPROLOL TARTRATE 25 MG TAB PO SCH ×3 (09:00→21:00)
[2019-08-22] MEDS: FAMOTIDINE/PF 20 MG/2 ML VIAL IV SCH ×2 (09:04→21:39)
[2019-08-22] MEDS ORDERED: MIDODRINE HCL 5 MG TABLET PO SCH (09:45)
--- NOTE | 2019-08-22 14:28 | NUR ---
DC PLAN PER PATIENT, LIVES ALONE, REQUIRES ASSISTANCE FOR WHICH SHE HAS A PROVIDER. ALSO HAS A CANE, WHEELCHAIR, CPAP, SHOWER CHAIR AND HOSPITAL BED. PATIENT ALSO REQUIRES DIALYSIS FOR WHICH SHE HAS HER APPOINTMENT AUG 23 AT [facility]. PER PATIENT, FEELS SAFE TO RETURN WHEN READY. Addendum: 08/22/19 at 1430 by REED GRANT Amended: Links added.
[2019-08-22] MEDS: MIDODRINE HCL 5 MG TABLET PO SCH ×2 (14:33→21:39)
--- NOTE | 2019-08-22 15:10 | NUR ---
MD CALL Call made to Dr. Brasher, update given. New order received to downgrade status to PCCU, will carry out.
[2019-08-22] MEDS ORDERED: ATORVASTATIN CALCIUM 20 MG TABLET PO SCH (21:00)
[2019-08-23 02:08] LABS: HEMATOCRIT 23.7 % (36-48); MEAN CORPUSCULAR HEMOGLOBIN 35.2 pg (27.0-33.0); MEAN CORPUSCULAR HGB CONC 34.5 g/dL (32.0-36.0); MEAN CORPUSCULAR VOLUME 102.1 fL (79-99); NUCLEATED RED BLOOD CELLS 0.1 % (0.0-0.19); PLATELET COUNT (AUTO) 142 K/uL (130-400); RED BLOOD CELL COUNT(AUTO) 2.32 MIL/uL (4.00-5.50); RED CELL DISTRIBUTION WIDTH 13.3 % (11.0-15.5); WHITE BLOOD COUNT (AUTO) 8.7 K/uL (4.8-10.8)
[2019-08-23 02:20] LABS: CREATININE 5.2 mg/dL (0.5-1.5); MAGNESIUM 1.9 mg/dL (1.80-2.40); PHOSPHORUS 7.1 mg/dL (2.5-4.9); POTASSIUM 4.5 mmol/L (3.5-5.1)
[2019-08-23 03:26] LABS: BAND NEUTROPHILS % (MANUAL) 3 % (0-2); EOSINOPHILS % (MANUAL) 2 % (1-6); LYMPHOCYTES % (MANUAL) 10 % (22-44); MAN.DIFF COMMENT-IMPRESSION MANUAL DIFFERENTIAL; MONOCYTES % (MANUAL) 3 % (2-9); PLATELET MORPHOLOGY COMMENT ADEQUATE; SEGMENTED NEUTROPHILS % 82 % (40-70)
[2019-08-23 04:33] VITALS: BP 113/49
[2019-08-23 07:04] VITALS: BP 105/40
[2019-08-23] MEDS: NITROGLYCERIN 1GM/1 INCH PACKET TD SCH ×2 (08:00→16:00)
[2019-08-23] MEDS ORDERED: RIVAROXABAN 15 MG TABLET PO SCH (09:00)
[2019-08-23] MEDS ORDERED: COMPOUND IV MISC 1 EACH IVSOLN MISC PRN (09:15)
[2019-08-23] MEDS ORDERED: EPOETIN ALFA 10,000 UNIT/ML VIAL SQ SCH (09:15)
[2019-08-23 10:44] VITALS: BP 113/45
[2019-08-23] MEDS ORDERED: HEPARIN SODIUM 5000UNIT/ML 1ML VIAL IJ PRN (11:30)
[2019-08-23] MEDS ORDERED: 0.9% SODIUM CHLORIDE 1000 ML IV BAG IV PRN (11:30)
[2019-08-23] MEDS ORDERED: SODIUM CHLORIDE 0.9% 1000ML 1,000 ML IV PRN (11:30)
[2019-08-23] MEDS: MIDODRINE HCL 5 MG TABLET PO SCH ×3 (12:26→21:55)
[2019-08-23] MEDS: ASPIRIN 81MG TAB.CHEW PO SCH (12:26)
[2019-08-23] MEDS: FAMOTIDINE/PF 20 MG/2 ML VIAL IV SCH ×2 (12:27→21:55)
[2019-08-23] MEDS: METOPROLOL TARTRATE 25 MG TAB PO SCH ×2 (12:27→22:12)
[2019-08-23] MEDS: ACETAMINOPHEN 325 MG TAB PO PRN (14:51)
[2019-08-23] MEDS: IRON SUCROSE COMPLEX 100 MG in SODIUM CHLORIDE 0.9% 50 ML IV SCH (14:51)
[2019-08-23 14:59] VITALS: BP 109/44
[2019-08-23] MEDS: EPOETIN ALFA 10,000 UNIT/ML VIAL SQ SCH (15:29)
[2019-08-23 20:17] VITALS: BP 102/30
[2019-08-23] MEDS: ATORVASTATIN CALCIUM 20 MG TABLET PO SCH (21:55)
[2019-08-24] VITALS (7 sets, daily range): BP systolic 110–139; BP diastolic 40–59
[2019-08-24] MEDS: NITROGLYCERIN 1GM/1 INCH PACKET TD SCH ×4 (00:42→23:10)
[2019-08-24 05:02] LABS: HEMOGLOBIN A1C 6.4 % (4.0-6.0)
[2019-08-24 05:07] LABS: CHOLESTEROL 112 mg/dL (<200); HDL CHOLESTEROL 41 mg/dL (35-85); LDL DIRECT 63 mg/dL (0-99); TRIGLYCERIDES 77 mg/dL (30-200)
[2019-08-24] MEDS: HYDROXYZINE HCL 25 MG TABLET PO SCH ×3 (06:15→06:54)
[2019-08-24] MEDS ORDERED: ENOXAPARIN SODIUM 1 MG/KG SQ SCH (09:00)
[2019-08-24] MEDS: ASPIRIN 81MG TAB.CHEW PO SCH (09:00)
[2019-08-24] MEDS: METOPROLOL TARTRATE 25 MG TAB PO SCH ×2 (09:00→20:58)
[2019-08-24] MEDS ORDERED: RIVAROXABAN 15 MG TABLET PO SCH (09:00)
[2019-08-24] MEDS ORDERED: ENOXAPARIN SODIUM 80 MG/0.8 ML SQ SCH (09:00)
[2019-08-24] MEDS: FAMOTIDINE/PF 20 MG/2 ML VIAL IV SCH ×2 (09:36→20:56)
[2019-08-24] MEDS: MIDODRINE HCL 5 MG TABLET PO SCH ×3 (09:39→20:58)
[2019-08-24] MEDS: IRON SUCROSE COMPLEX 100 MG in SODIUM CHLORIDE 0.9% 50 ML IV SCH (14:38)
[2019-08-24] MEDS: EPOETIN ALFA 10,000 UNIT/ML VIAL SQ SCH (16:47)
[2019-08-24] MEDS: APIXABAN 2.5 MG TABLET PO SCH (20:56)
[2019-08-24] MEDS: ATORVASTATIN CALCIUM 20 MG TABLET PO SCH (20:56)
[2019-08-25 03:56] VITALS: BP 129/73
[2019-08-25 04:19] LABS: MEAN CORPUSCULAR HEMOGLOBIN 35.5 pg (27.0-33.0); MEAN CORPUSCULAR HGB CONC 34.8 g/dL (32.0-36.0); MEAN CORPUSCULAR VOLUME 101.8 fL (79-99); PLATELET COUNT (AUTO) 168 K/uL (130-400); RED BLOOD CELL COUNT(AUTO) 2.55 MIL/uL (4.00-5.50); RED CELL DISTRIBUTION WIDTH 13.3 % (11.0-15.5); WHITE BLOOD COUNT (AUTO) 7.4 K/uL (4.8-10.8)
[2019-08-25 04:20] LABS: CREATININE 3.9 mg/dL (0.5-1.5); POTASSIUM 4.2 mmol/L (3.5-5.1)
[2019-08-25 05:25] LABS: BASOPHILS % (MANUAL) 3 % (0-2); EOSINOPHILS % (MANUAL) 4 % (1-6); LYMPHOCYTES % (MANUAL) 17 % (22-44); MAN.DIFF COMMENT-IMPRESSION MANUAL DIFFERENTIAL; MONOCYTES % (MANUAL) 12 % (2-9); SEGMENTED NEUTROPHILS % 64 % (40-70)
[2019-08-25 05:26] LABS: PLATELET MORPHOLOGY COMMENT ADEQUATE
[2019-08-25 08:02] VITALS: BP 121/51
[2019-08-25] MEDS: METOPROLOL TARTRATE 25 MG TAB PO SCH ×2 (09:00→20:38)
[2019-08-25] MEDS: ASPIRIN 81MG TAB.CHEW PO SCH (09:54)
[2019-08-25] MEDS: APIXABAN 2.5 MG TABLET PO SCH (09:54)
[2019-08-25] MEDS: NITROGLYCERIN 1GM/1 INCH PACKET TD SCH ×2 (09:54→16:20)
[2019-08-25] MEDS: FAMOTIDINE/PF 20 MG/2 ML VIAL IV SCH ×2 (09:54→20:38)
[2019-08-25] MEDS: IRON SUCROSE COMPLEX 100 MG in SODIUM CHLORIDE 0.9% 50 ML IV SCH (09:58)
[2019-08-25] MEDS: MIDODRINE HCL 5 MG TABLET PO SCH ×2 (09:58→20:37)
[2019-08-25 11:17] VITALS: BP 131/51
[2019-08-25] MEDS: EPOETIN ALFA 10,000 UNIT/ML VIAL SQ SCH (15:00)
[2019-08-25 15:43] VITALS: BP 113/50
[2019-08-25 20:33] VITALS: BP 126/42
[2019-08-25] MEDS: ATORVASTATIN CALCIUM 20 MG TABLET PO SCH (20:37)
[2019-08-26 00:01] VITALS: BP 123/42
[2019-08-26] MEDS: NITROGLYCERIN 1GM/1 INCH PACKET TD SCH ×2 (00:57→09:23)
[2019-08-26] MEDS: ACETAMINOPHEN 325 MG TAB PO PRN (01:03)
[2019-08-26 04:35] VITALS: BP 116/36
[2019-08-26 05:35] LABS: HEMATOCRIT 25.9 % (36-48); MEAN CORPUSCULAR HEMOGLOBIN 35.5 pg (27.0-33.0); MEAN CORPUSCULAR HGB CONC 34.7 g/dL (32.0-36.0); MEAN CORPUSCULAR VOLUME 102.5 fL (79-99); NUCLEATED RED BLOOD CELLS 0.1 % (0.0-0.19); PLATELET COUNT (AUTO) 157 K/uL (130-400); RED BLOOD CELL COUNT(AUTO) 2.52 MIL/uL (4.00-5.50); RED CELL DISTRIBUTION WIDTH 13.7 % (11.0-15.5); WHITE BLOOD COUNT (AUTO) 7.7 K/uL (4.8-10.8)
[2019-08-26 05:57] LABS: CREATININE 5.6 mg/dL (0.5-1.5); PHOSPHORUS 5.8 mg/dL (2.5-4.9); POTASSIUM 3.7 mmol/L (3.5-5.1)
[2019-08-26 07:56] VITALS: BP 119/50
[2019-08-26] MEDS: ASPIRIN 81MG TAB.CHEW PO SCH (09:21)
[2019-08-26] MEDS: FAMOTIDINE/PF 20 MG/2 ML VIAL IV SCH ×2 (09:21→20:56)
[2019-08-26] MEDS: IRON SUCROSE COMPLEX 100 MG in SODIUM CHLORIDE 0.9% 50 ML IV SCH (09:21)
[2019-08-26] MEDS: METOPROLOL TARTRATE 25 MG TAB PO SCH ×2 (09:22→20:56)
[2019-08-26] MEDS: MIDODRINE HCL 5 MG TABLET PO SCH (09:22)
[2019-08-26 11:45] VITALS: BP 128/47
--- NOTE | 2019-08-26 15:11 | NUR ---
DC PLAN VISITED WITH PATIENT. KERRY SIGNED FOR [facility]. INFO SENT. INCLUDING PRASHANT. PT NOTES LATE DUE TO PENDING EVAL. PATIENT ALSO PENDING POSSIBLE LHC. LET CM DIRECTOR KNOW OF POSSIBLE DELAY. Addendum: 08/26/19 at 1514 by KIKE ADLER RN CM Amended: Links added.
--- NOTE | 2019-08-26 15:15 | NUR ---
LB AVILEZ SENT UPDATES TO [facility] ALSO SPOKE TO THEM SAID PATIENT STILL HAS HER CHAIR TTS AT 115PM. WILL CALL IF THEY NEED ANYTHING ELSE. Addendum: 08/26/19 at 1516 by KIKE ADLER RN CM Amended: Links added.
[2019-08-26 15:39] VITALS: BP 140/59
[2019-08-26] MEDS ORDERED: NITROGLYCERIN 5 MG/ML 10 ML VIAL IV ONE (17:38)
[2019-08-26] MEDS ORDERED: HEPARIN SODIUM 1000UNIT/ML 10ML VIAL ONE (17:38)
[2019-08-26] MEDS ORDERED: BIVALIRUDIN 250 MG/VIAL IV ONE (17:38)
[2019-08-26] MEDS ORDERED: NICARDIPINE HCL 25 MG/10 ML ML IV ONE (17:38)
[2019-08-26] MEDS ORDERED: IOHEXOL-350 50ML VIAL IV ONE (17:39)
[2019-08-26] MEDS ORDERED: IOHEXOL 350 MG/ML 100ML INFUS..BTL IV ONE (17:39)
[2019-08-26] MEDS ORDERED: FENTANYL CITRATE PF 50 MCG/1 ML 2ML VIAL ONE (17:39)
[2019-08-26] MEDS ORDERED: LIDOCAINE HCL 2% 20ML ONE (17:39)
[2019-08-26] MEDS ORDERED: MIDAZOLAM HCL 1 MG/ML 2ML VIAL ONE (17:39)
[2019-08-26 19:54] VITALS: BP 136/43
[2019-08-26] MEDS: ATORVASTATIN CALCIUM 20 MG TABLET PO SCH (20:56)
[2019-08-26] MEDS ORDERED: APIXABAN 2.5 MG TABLET PO SCH (21:00)
[2019-08-27 00:12] VITALS: BP 136/43
[2019-08-27 04:00] VITALS: BP 118/45
[2019-08-27 04:29] LABS: HEMATOCRIT 26.5 % (36-48); MEAN CORPUSCULAR HEMOGLOBIN 34.8 pg (27.0-33.0); MEAN CORPUSCULAR VOLUME 102.2 fL (79-99); NUCLEATED RED BLOOD CELLS 0.1 % (0.0-0.19); PLATELET COUNT (AUTO) 177 K/uL (130-400); RED BLOOD CELL COUNT(AUTO) 2.59 MIL/uL (4.00-5.50); RED CELL DISTRIBUTION WIDTH 14.2 % (11.0-15.5); WHITE BLOOD COUNT (AUTO) 6.7 K/uL (4.8-10.8)
[2019-08-27 05:10] LABS: CREATININE 6.9 mg/dL (0.5-1.5)
[2019-08-27 07:29] VITALS: BP 128/46
[2019-08-27] MEDS ORDERED: CLOPIDOGREL BISULFATE 75 MG TAB PO SCH (09:00)
[2019-08-27] MEDS: FAMOTIDINE/PF 20 MG/2 ML VIAL IV SCH (09:00)
[2019-08-27] MEDS: METOPROLOL TARTRATE 25 MG TAB PO SCH (09:00)
[2019-08-27] MEDS ORDERED: APIXABAN 2.5 MG TABLET PO SCH (09:00)
[2019-08-27] MEDS: ASPIRIN 81MG TAB.CHEW PO SCH (09:00)
[2019-08-27] MEDS ORDERED: ISOSORBIDE MONO 30MG TAB SR PO SCH (09:00)
[2019-08-27 15:30] VITALS: BP 121/34
[2019-08-27] MEDS: IRON SUCROSE COMPLEX 100 MG in SODIUM CHLORIDE 0.9% 50 ML IV SCH (15:36)
[2019-08-27] MEDS ORDERED: ATOR20TA65 PO (17:14)
[2019-08-27] MEDS ORDERED: Isosorbide Mono 30MG Tab Sr PO (17:14)
[2019-08-27] MEDS ORDERED: CLOP75TA14 PO (17:14)
[2019-08-27] MEDS ORDERED: APIX2.5T PO (17:14)
[2019-08-27] MEDS ORDERED: METO25 PO (17:14)
[2019-08-27] MEDS ORDERED: ASPI-1005 PO (17:14)
--- NOTE | 2019-08-27 17:16 | NUR ---
RD SCREEN - LOS X 5 Pt admitted for Nstemi. Pt tolerating Heart Healthy diet with no report of GI distress. Recommend to add 75CC, Dialysis, Mechanical soft, finely chopped diet. Also recommend to add Nepro QD. Dialysis diet education provided for Pt's daughter during previous visit, as per Pt. Pt with chewing difficulty secondary to missing teeth/dentures. Pt LBM 08/25/19. Pt monitored labs: Na 135, Cl 97, BUN 59, Cr 6.9, GFR 6, Glu 126, Alb 3.0. RD to continue to monitor. Please notify RD as additional nutrition concerns arise. Thank you. Addendum: 08/27/19 at [address] Amended: Links added.
--- NOTE | 2019-08-27 18:03 | NUR ---
SBAR REPORT HANDED TO EMILEE JOY LVN OF [facility]. ALL QUESTIONS ANSWERED.
== END 2019-08-27 18:31 | DRG 280 ==
LOC: EDH 02:11 → EDHIP 04:00 → 2CH 07:58 → 2AH 15:41
PROVIDERS: ADMIT Internal Medicine; ATTEND Internal Medicine
PROC: 5A1D70Z Performance of Urinary Filtration, Intermittent, Less than 6 Hours Per Day (ICD-10-PCS; 2019-08-23)
PROC: 5A1D70Z Performance of Urinary Filtration, Intermittent, Less than 6 Hours Per Day (ICD-10-PCS; 2019-08-24)
PROC: B3101ZZ Fluoroscopy of Thoracic Aorta using Low Osmolar Contrast (ICD-10-PCS; principal; 2019-08-26)
PROC: 4A023N7 Measurement of Cardiac Sampling and Pressure, Left Heart, Percutaneous Approach (ICD-10-PCS; 2019-08-26)
PROC: B2111ZZ Fluoroscopy of Multiple Coronary Arteries using Low Osmolar Contrast (ICD-10-PCS; 2019-08-26)
PROC: B2131ZZ Fluoroscopy of Multiple Coronary Artery Bypass Grafts using Low Osmolar Contrast (ICD-10-PCS; 2019-08-26)
PROC: 5A1D70Z Performance of Urinary Filtration, Intermittent, Less than 6 Hours Per Day (ICD-10-PCS; 2019-08-27)
DX: I21.4 Non-ST elevation (NSTEMI) myocardial infarction (principal); N18.6 End stage renal disease; I46.9 Cardiac arrest, cause unspecified; I50.21 Acute systolic (congestive) heart failure; I13.2 Hypertensive heart and chronic kidney disease with heart failure and with stage 5 chronic kidney disease, or end stage renal disease; D64.9 Anemia, unspecified; E11.22 Type 2 diabetes mellitus with diabetic chronic kidney disease; E78.2 Mixed hyperlipidemia; I25.119 Atherosclerotic heart disease of native coronary artery with unspecified angina pectoris; I25.5 Ischemic cardiomyopathy; I34.0 Nonrheumatic mitral (valve) insufficiency; I48.91 Unspecified atrial fibrillation; I70.1 Atherosclerosis of renal artery; I70.8 Atherosclerosis of other arteries; J44.9 Chronic obstructive pulmonary disease, unspecified; Z99.2 Dependence on renal dialysis; Z79.01 Long term (current) use of anticoagulants; Z95.1 Presence of aortocoronary bypass graft; Z90.710 Acquired absence of both cervix and uterus; Z87.891 Personal history of nicotine dependence; Z83.3 Family history of diabetes mellitus; Z82.5 Family history of asthma and other chronic lower respiratory diseases; Z82.49 Family history of ischemic heart disease and other diseases of the circulatory system; Z82.3 Family history of stroke; Z82.0 Family history of epilepsy and other diseases of the nervous system
CPT/HCPCS: 36415; 71045; 80048; 80053; 80061; 82550; 82948; 83036; 83735; 83880; 84100; 84484; 85025; 85027; 85610; 85730; 87040; 90935; 93005; 93306; 93459; 99156; 99157; 99291; C1769; C1894; G0378; J0583; J0885; J1644; J1650; J1756; J2250; J3010; J3490; J7030; Q9967

== ENCOUNTER 2020-01-21 16:25 | Inpatient (IN) | payer MEDICARE ==
[~2020-01-21] VITALS: Ht 160 cm; Wt 79.3 kg
[~2020-01-21 16:25] MED LIST changes: -ASPI-1005 PO; +ATOR20TA65 PO; -ATOR40TA69 PO; -FE F1CAP8 PO; +Isosorbide Mono 30MG Tab Sr PO; -LISI-613 PO; -MELA1TAB21 PO; +METO25 PO; -RIVA15TA PO; -TYL3B PO
[2020-01-21 17:31] LABS: BASOPHILS % (AUTO) 0.7 % (0.0-5.0); HEMATOCRIT 32.5 % (36-48); MEAN CORPUSCULAR HGB CONC 32.9 g/dL (32.0-36.0); MEAN CORPUSCULAR VOLUME 97.3 fL (79-99); MONOCYTES % (AUTO) 10.8 % (3.0-13.0); NEUTROPHILS % (AUTO) 72.2 % (40.0-77.0); PLATELET COUNT (AUTO) 121 K/uL (130-400); RED BLOOD CELL COUNT(AUTO) 3.34 MIL/uL (4.00-5.50); RED CELL DISTRIBUTION WIDTH 18.8 % (11.0-15.5); WHITE BLOOD COUNT (AUTO) 5.9 K/uL (4.8-10.8)
[2020-01-21 17:44] LABS: CREATININE 3.8 mg/dL (0.5-1.5); POTASSIUM 3.4 mmol/L (3.5-5.1)
[2020-01-21 17:46] LABS: INR 1.33 (0.85-1.15); PARTIAL THROMBOPLASTIN TIME 29.9 SEC (26.3-35.5); PROTHROMBIN TIME 14.2 SEC (9.6-11.6)
[2020-01-21 17:49] LABS: ALBUMIN 3.2 g/dL (3.5-5.0); TOTAL PROTEIN, SERUM 8.1 g/dL (6.0-8.3)
[2020-01-21 20:02] LABS: HEMATOCRIT 29.5 % (36-48)
[2020-01-21] MEDS ORDERED: HYDROCORTISONE 25 MG SUPPOSITORY PR ONE (20:14)
[2020-01-21] MEDS ORDERED: HEMORRHOIDAL OINTMENT 57 GM CREAM.GM. RC ONE (20:15)
[2020-01-21] MEDS ORDERED: SODIUM CHLORIDE 0.9% 100 ML IV ONE (20:54)
[2020-01-21] MEDS ORDERED: LACTULOSE 20 GM/30 ML UDCUP PO PRN (21:15)
[2020-01-21] MEDS ORDERED: ACETAMINOPHEN 325 MG TAB PO PRN ×2 (21:15)
[2020-01-21] MEDS ORDERED: MORPHINE SULFATE 2 MG/ML 1ML SYG IV PRN (21:15)
[2020-01-21] MEDS ORDERED: NITROGLYCERIN 0.4 MG SL TAB SL PRN (21:15)
[2020-01-21] MEDS ORDERED: ONDANSETRON HCL 4 MG/2 ML VIAL IV PRN (21:15)
[2020-01-21] MEDS ORDERED: ACETAMINOPHEN 325 MG TAB ONE (21:34)
[2020-01-21] MEDS ORDERED: IPRATROPIUM/ALBUTEROL SULFATE 3 ML SOLUTION IH PRN (22:15)
[2020-01-21] MEDS ORDERED: MORPHINE SULFATE 2 MG/ML 1ML SYG ONE (22:18)
[2020-01-21 23:35] VITALS: BP 140/51
--- NOTE | 2020-01-22 00:30 | NUR ---
PATIENT ARRIVED TO ROOM 423, AAOX3, NO ACUTE DISTRESS NOTED. DX CHEST PAIN, R/O ACS, + OB AND ABDOMINAL PAIN. NO ACUTE DISTRESS NOTED AT THIS TIME. V/S STABLE, PATIENT TO BE MONITORED PCCU. PATIENT IS NPO. POC DISCUSSED WITH PATIENT, PENDING EVALUATION BY DR. MCALLISTER FOR ACUTE CHOLECYSTITIS, DR. LUNDBERG FOR + OB, DR. MARTIN ANDERSEN FOR ESRD AND POSSIBLE CARDIOLOGY CONSULT IN AM. PATIENT VOICED UNDERSTANDING. WILL CONT TO MONITOR CLOSELY. TELE WITH SINUS 64.
--- NOTE | 2020-01-22 01:27 | NUR ---
PATIENT WITH C/O PURITUS. I CALLED STEFANI RIVERA OUTBOUND SALES SPECIALIST, NEW ORDER FOR BENADRYL 25MG IV Q 6 PRN ITCHING RECEIVED. WILL CONT TO MONITOR.
[2020-01-22] MEDS ORDERED: DiphenhydrAMINE HCL 50 MG/ML VIAL IV PRN (01:30)
[2020-01-22] MEDS ORDERED: DiphenhydrAMINE HCL 50 MG/ML VIAL ONE (01:59)
[2020-01-22 02:25] LABS: BASOPHILS % (AUTO) 0.7 % (0.0-5.0); EOSINOPHILS % (AUTO) 1.1 % (0.0-8.0); HEMATOCRIT 29.9 % (36-48); LYMPHOCYTES % (AUTO) 19.9 % (21.0-51.0); MEAN CORPUSCULAR HEMOGLOBIN 31.5 pg (27.0-33.0); MEAN CORPUSCULAR HGB CONC 31.8 g/dL (32.0-36.0); MONOCYTES % (AUTO) 13.9 % (3.0-13.0); PLATELET COUNT (AUTO) 107 K/uL (130-400); RED BLOOD CELL COUNT(AUTO) 3.02 MIL/uL (4.00-5.50); RED CELL DISTRIBUTION WIDTH 18.8 % (11.0-15.5); WHITE BLOOD COUNT (AUTO) 5.5 K/uL (4.8-10.8)
[2020-01-22 02:35] LABS: CREATININE 4.3 mg/dL (0.5-1.5); POTASSIUM 4.1 mmol/L (3.5-5.1)
[2020-01-22] MEDS: ZOSYN 3.375GM+NS 50ML 50 ML IV SCH ×2 (03:22→14:29)
[2020-01-22 04:00] VITALS: BP 140/57
--- NOTE | 2020-01-22 05:03 | NUR ---
UPDATED STEFANI SANTIAGO OF CURRENT LAB RESULTS.
[2020-01-22] MEDS: INSULIN HUMULIN R 100 UNIT/ML 3ML SQ SCH ×4 (05:23→21:00)
[2020-01-22 08:13] LABS: HEMATOCRIT 28.6 % (36-48)
[2020-01-22 08:53] VITALS: BP 121/52
[2020-01-22] MEDS ORDERED: ASPIRIN 81MG TAB.CHEW PO SCH (09:00)
[2020-01-22] MEDS: METOPROLOL TARTRATE 25 MG TAB PO SCH ×2 (09:00→21:49)
[2020-01-22] MEDS: PANTOPRAZOLE SODIUM 80 MG in SODIUM CHLORIDE 0.9% 100 ML IV SCH (10:46)
[2020-01-22] MEDS ORDERED: SINCALIDE 5 MCG ML VIAL IV ONE (11:11)
--- NOTE | 2020-01-22 11:37 | NUR ---
INITIAL SW spoke to patient's daughter, Quin Saldana, [phone]. No home health. Patient has [facility] X 35 hours but daughter could not remember the name of the agency. Dialysis: TTS at 10am at [facility]. Medical transportation helps to transport her to and from dialysis. DME: hospital bed, walker with seat, cane, shower chair, BPM, glucometer (uses insulin, CPAP. Patient needs help with ADL's as per daughter and does not drive. PCP is Dr. Tito Moreno. Pharmacy is [facility] located in [place]. DCP is home. Addendum: 01/22/20 at 1140 by TABITHA CHAKRABORTY SS Amended: Links added.
[2020-01-22 14:15] LABS: HEMATOCRIT 29.6 % (36-48)
[2020-01-22 14:25] VITALS: BP 134/51
[2020-01-22] MEDS: NITROGLYCERIN 1GM/1 INCH PACKET TD SCH ×2 (14:29→21:50)
--- NOTE | 2020-01-22 18:15 | NUR ---
NOTIFIED LIAM NOBLE, HEMODIALYSIS REGARDING HD ORDERED FOR TOMORROW. LIAM VERBALIZED UNDERSTANDING.
[2020-01-22 18:26] VITALS: BP 132/47
[2020-01-22 19:23] VITALS: BP 135/52
[2020-01-22] MEDS: ATORVASTATIN CALCIUM 20 MG TABLET PO SCH (21:49)
[2020-01-22 23:25] VITALS: BP 147/54
[2020-01-23] VITALS (18 sets, daily range): BP systolic 103–145; BP diastolic 31–64
[2020-01-23] MEDS: ZOSYN 3.375GM+NS 50ML 50 ML IV SCH ×2 (03:05→15:00)
[2020-01-23 03:49] LABS: % IRON SATURATION 23.3 % (22-44)
[2020-01-23] MEDS: NITROGLYCERIN 1GM/1 INCH PACKET TD SCH ×3 (05:10→21:56)
[2020-01-23] MEDS: INSULIN HUMULIN R 100 UNIT/ML 3ML SQ SCH ×4 (06:19→22:08)
[2020-01-23] MEDS: PANTOPRAZOLE SODIUM 80 MG in SODIUM CHLORIDE 0.9% 100 ML IV SCH (06:20)
[2020-01-23] MEDS: METOPROLOL TARTRATE 25 MG TAB PO SCH ×2 (06:41→21:58)
[2020-01-23] MEDS ORDERED: PROPOFOL 10 MG/ML 20ML VIAL IV ONE (07:02)
[2020-01-23] MEDS ORDERED: LIDOCAINE HCL 2% 20ML ONE (07:02)
[2020-01-23 09:18] LABS: BASOPHILS % (AUTO) 0.9 % (0.0-5.0); EOSINOPHILS % (AUTO) 3.6 % (0.0-8.0); HEMATOCRIT 28.6 % (36-48); LYMPHOCYTES % (AUTO) 14.7 % (21.0-51.0); MEAN CORPUSCULAR HEMOGLOBIN 31.8 pg (27.0-33.0); MEAN CORPUSCULAR HGB CONC 32.2 g/dL (32.0-36.0); MONOCYTES % (AUTO) 11.1 % (3.0-13.0); NEUTROPHILS % (AUTO) 69.3 % (40.0-77.0); PLATELET COUNT (AUTO) 105 K/uL (130-400); RED BLOOD CELL COUNT(AUTO) 2.89 MIL/uL (4.00-5.50); RED CELL DISTRIBUTION WIDTH 18.7 % (11.0-15.5); WHITE BLOOD COUNT (AUTO) 5.5 K/uL (4.8-10.8)
[2020-01-23] MEDS ORDERED: METR500T PO (13:35)
[2020-01-23] MEDS ORDERED: METO25 PO (13:35)
[2020-01-23] MEDS ORDERED: LEVO500T2 PO (13:35)
--- NOTE | 2020-01-23 18:50 | NUR ---
Pt has discharge orders. However, while awaiting paperwork, she saw Dr. Bustillos in the [place], who did a push enteroscopy today. She reported to him that she is experiencing dark stools, which was not reported to nurse previously. Dr. Bustillos gave orders to hold discharge and order GI bleeding scan. When pt was updated with new orders, she refused, stated would leave against medical advice if need be. Reported to Dr. Bustillos and admitting MD Dr. Brasher.
[2020-01-23] MEDS: ATORVASTATIN CALCIUM 20 MG TABLET PO SCH (21:57)
[2020-01-24 00:15] VITALS: BP 125/50
[2020-01-24] MEDS: ZOSYN 3.375GM+NS 50ML 50 ML IV SCH ×2 (03:00→17:54)
[2020-01-24 03:41] VITALS: BP 119/48
[2020-01-24] MEDS: NITROGLYCERIN 1GM/1 INCH PACKET TD SCH ×3 (05:06→20:30)
[2020-01-24] MEDS: INSULIN HUMULIN R 100 UNIT/ML 3ML SQ SCH ×4 (06:24→21:00)
[2020-01-24 08:00] VITALS: BP 139/45
[2020-01-24 09:10] LABS: BASOPHILS % (AUTO) 0.6 % (0.0-5.0); EOSINOPHILS % (AUTO) 3.4 % (0.0-8.0); LYMPHOCYTES % (AUTO) 17.5 % (21.0-51.0); MEAN CORPUSCULAR HEMOGLOBIN 30.5 pg (27.0-33.0); MEAN CORPUSCULAR VOLUME 98.3 fL (79-99); MONOCYTES % (AUTO) 13.9 % (3.0-13.0); NEUTROPHILS % (AUTO) 64.2 % (40.0-77.0); PLATELET COUNT (AUTO) 99 K/uL (130-400); RED BLOOD CELL COUNT(AUTO) 2.95 MIL/uL (4.00-5.50); RED CELL DISTRIBUTION WIDTH 18.8 % (11.0-15.5); WHITE BLOOD COUNT (AUTO) 5.3 K/uL (4.8-10.8)
[2020-01-24] MEDS ORDERED: EPOETIN ALFA 10,000 UNIT/ML VIAL SQ SCH (09:15)
[2020-01-24] MEDS ORDERED: COMPOUND IV MISC 1 EACH IVSOLN MISC PRN (09:30)
[2020-01-24 11:00] VITALS: BP 130/49
[2020-01-24] MEDS: PANTOPRAZOLE SODIUM 80 MG in SODIUM CHLORIDE 0.9% 100 ML IV SCH (12:47)
[2020-01-24] MEDS: IRON SUCROSE COMPLEX 100 MG in SODIUM CHLORIDE 0.9% 50 ML IV SCH (12:47)
[2020-01-24] MEDS: METOPROLOL TARTRATE 25 MG TAB PO SCH ×2 (12:47→21:00)
[2020-01-24 16:00] VITALS: BP_SYST 140; BP_SYST 150; BP_DIAS 48; BP_DIAS 88
[2020-01-24 20:01] VITALS: BP 133/50
[2020-01-24] MEDS: ATORVASTATIN CALCIUM 20 MG TABLET PO SCH (21:00)
[2020-01-25] VITALS (14 sets, daily range): BP systolic 103–146; BP diastolic 48–80
[2020-01-25] MEDS: ZOSYN 3.375GM+NS 50ML 50 ML IV SCH ×2 (03:40→15:42)
[2020-01-25] MEDS: NITROGLYCERIN 1GM/1 INCH PACKET TD SCH ×3 (03:43→20:30)
[2020-01-25] MEDS: INSULIN HUMULIN R 100 UNIT/ML 3ML SQ SCH ×4 (07:30→20:17)
[2020-01-25 08:46] LABS: BASOPHILS % (AUTO) 0.5 % (0.0-5.0); HEMATOCRIT 32.7 % (36-48); LYMPHOCYTES % (AUTO) 20.6 % (21.0-51.0); MEAN CORPUSCULAR HEMOGLOBIN 31.7 pg (27.0-33.0); MEAN CORPUSCULAR HGB CONC 31.8 g/dL (32.0-36.0); MEAN CORPUSCULAR VOLUME 99.7 fL (79-99); MONOCYTES % (AUTO) 10.8 % (3.0-13.0); NEUTROPHILS % (AUTO) 65.9 % (40.0-77.0); PLATELET COUNT (AUTO) 110 K/uL (130-400); RED BLOOD CELL COUNT(AUTO) 3.28 MIL/uL (4.00-5.50); RED CELL DISTRIBUTION WIDTH 18.9 % (11.0-15.5); WHITE BLOOD COUNT (AUTO) 5.9 K/uL (4.8-10.8)
[2020-01-25] MEDS: PANTOPRAZOLE SODIUM 80 MG in SODIUM CHLORIDE 0.9% 100 ML IV SCH (09:00)
[2020-01-25] MEDS: IRON SUCROSE COMPLEX 100 MG in SODIUM CHLORIDE 0.9% 50 ML IV SCH (10:30)
[2020-01-25] MEDS: METOPROLOL TARTRATE 25 MG TAB PO SCH ×2 (13:33→20:29)
[2020-01-25] MEDS: ATORVASTATIN CALCIUM 20 MG TABLET PO SCH (20:29)
[2020-01-26] VITALS (7 sets, daily range): BP systolic 122–138; BP diastolic 45–68
[2020-01-26] MEDS: ZOSYN 3.375GM+NS 50ML 50 ML IV SCH ×2 (02:43→15:30)
--- NOTE | 2020-01-26 03:01 | NUR ---
PATIENT WITH 1 BM, NO BLOOD NOTED.
[2020-01-26 05:08] LABS: HEMATOCRIT 29.7 % (36-48); MEAN CORPUSCULAR HEMOGLOBIN 31.7 pg (27.0-33.0); PLATELET COUNT (AUTO) 103 K/uL (130-400); RED CELL DISTRIBUTION WIDTH 19.1 % (11.0-15.5); WHITE BLOOD COUNT (AUTO) 6.9 K/uL (4.8-10.8)
[2020-01-26 05:20] LABS: BASOPHILS % (MANUAL) 2 % (0-2); EOSINOPHILS % (MANUAL) 2 % (1-6); LYMPHOCYTES % (MANUAL) 10 % (22-44); MONOCYTES % (MANUAL) 10 % (2-9); SEGMENTED NEUTROPHILS % 76 % (40-70)
[2020-01-26 05:21] LABS: MAN.DIFF COMMENT-IMPRESSION MANUAL DIFFERENTIAL; PLATELET MORPHOLOGY COMMENT DECREASED
[2020-01-26] MEDS: INSULIN HUMULIN R 100 UNIT/ML 3ML SQ SCH ×2 (05:40→11:57)
[2020-01-26] MEDS: NITROGLYCERIN 1GM/1 INCH PACKET TD SCH ×2 (05:40→11:59)
[2020-01-26] MEDS: PANTOPRAZOLE SODIUM 80 MG in SODIUM CHLORIDE 0.9% 100 ML IV SCH (09:00)
[2020-01-26] MEDS: IRON SUCROSE COMPLEX 100 MG in SODIUM CHLORIDE 0.9% 50 ML IV SCH (09:11)
[2020-01-26] MEDS: METOPROLOL TARTRATE 25 MG TAB PO SCH (09:11)
[2020-01-26 09:39] LABS: BASOPHILS % (AUTO) 0.5 % (0.0-5.0); EOSINOPHILS % (AUTO) 1.8 % (0.0-8.0); HEMATOCRIT 29.3 % (36-48); LYMPHOCYTES % (AUTO) 8.2 % (21.0-51.0); MEAN CORPUSCULAR HEMOGLOBIN 31.1 pg (27.0-33.0); MEAN CORPUSCULAR HGB CONC 31.4 g/dL (32.0-36.0); MONOCYTES % (AUTO) 9.4 % (3.0-13.0); NEUTROPHILS % (AUTO) 79.7 % (40.0-77.0); PLATELET COUNT (AUTO) 99 K/uL (130-400); RED BLOOD CELL COUNT(AUTO) 2.96 MIL/uL (4.00-5.50); WHITE BLOOD COUNT (AUTO) 7.7 K/uL (4.8-10.8)
--- NOTE | 2020-01-26 19:20 | NUR ---
PIV to Lt arm removed, bleeding controlled and dressing applied. Patient assisted to car via wheelchair. Discharge instructions, follow up appointments, and prescribed medications reviewed with patient and daughter. Verbalized understanding. Prescription given to patient and daughter.
[2020-01-28 08:10] LABS: HEPATITIS A ANTIBODY IGM Negative (Negative); HEPATITIS B CORE IGM Negative (Negative); HEPATITIS Bs ANTIGEN SCREEN P Negative (Negative)
== END 2020-01-26 19:20 | disposition home or self-care (01) | DRG 444 ==
LOC: EDH 16:25 → EDHIP 21:05 → 4DH 22:46 → 4CH 01-23 22:41
PROVIDERS: ADMIT Internal Medicine; ATTEND Internal Medicine
PROC: 5A1D70Z Performance of Urinary Filtration, Intermittent, Less than 6 Hours Per Day (ICD-10-PCS; principal; 2020-01-23)
PROC: 0DJ08ZZ Inspection of Upper Intestinal Tract, Via Natural or Artificial Opening Endoscopic (ICD-10-PCS; 2020-01-23)
PROC: 0DJD8ZZ Inspection of Lower Intestinal Tract, Via Natural or Artificial Opening Endoscopic (ICD-10-PCS; 2020-01-23)
PROC: 5A1D70Z Performance of Urinary Filtration, Intermittent, Less than 6 Hours Per Day (ICD-10-PCS; 2020-01-25)
DX: K81.0 Acute cholecystitis (principal); K29.01 Acute gastritis with bleeding; N18.6 End stage renal disease; J90 Pleural effusion, not elsewhere classified; D62 Acute posthemorrhagic anemia; D68.9 Coagulation defect, unspecified; I13.2 Hypertensive heart and chronic kidney disease with heart failure and with stage 5 chronic kidney disease, or end stage renal disease; J98.11 Atelectasis; E87.6 Hypokalemia; E11.22 Type 2 diabetes mellitus with diabetic chronic kidney disease; G47.33 Obstructive sleep apnea (adult) (pediatric); E78.5 Hyperlipidemia, unspecified; D69.6 Thrombocytopenia, unspecified; I25.10 Atherosclerotic heart disease of native coronary artery without angina pectoris; I25.5 Ischemic cardiomyopathy; I08.1 Rheumatic disorders of both mitral and tricuspid valves; I48.0 Paroxysmal atrial fibrillation; I50.9 Heart failure, unspecified; I70.8 Atherosclerosis of other arteries; J44.9 Chronic obstructive pulmonary disease, unspecified; K59.00 Constipation, unspecified; K64.9 Unspecified hemorrhoids; K82.8 Other specified diseases of gallbladder; K57.90 Diverticulosis of intestine, part unspecified, without perforation or abscess without bleeding; K22.8 Other specified diseases of esophagus; Z99.2 Dependence on renal dialysis; I25.2 Old myocardial infarction; Z79.01 Long term (current) use of anticoagulants; Z82.0 Family history of epilepsy and other diseases of the nervous system; Z82.3 Family history of stroke; Z82.49 Family history of ischemic heart disease and other diseases of the circulatory system; Z95.1 Presence of aortocoronary bypass graft; Z90.710 Acquired absence of both cervix and uterus; Z87.891 Personal history of nicotine dependence; Z83.3 Family history of diabetes mellitus; Z82.5 Family history of asthma and other chronic lower respiratory diseases
CPT/HCPCS: 36415; 44360; 71045; 74176; 76705; 78227; 78278; 80048; 80053; 80074; 82270; 82550; 82948; 83540; 83550; 83690; 84145; 84484; 85014; 85018; 85025; 85610; 85730; 86677; 86850; 86900; 86901; 86922; 90935; 93005; 94664; 99291; A4606; A9512; A9537; C9113; G0378; J0885; J1200; J1756; J1815; J2543; J2704; J2805; J3490; J7030

== ENCOUNTER 2020-04-09 17:10 | Inpatient (IN) | payer MEDICARE ==
[~2020-04-09] VITALS: Ht 160 cm; Wt 80.6 kg
[~2020-04-09 17:10] MED LIST changes: +LEVO500T2 PO; +METR500T PO
[2020-04-09 17:42] LABS: BASOPHILS % (AUTO) 0.8 % (0.0-5.0); EOSINOPHILS % (AUTO) 0.8 % (0.0-8.0); HEMATOCRIT 30.1 % (36-48); LYMPHOCYTES % (AUTO) 14.1 % (21.0-51.0); MEAN CORPUSCULAR HGB CONC 33.6 g/dL (32.0-36.0); MEAN CORPUSCULAR VOLUME 98.4 fL (79-99); MONOCYTES % (AUTO) 13.6 % (3.0-13.0); NEUTROPHILS % (AUTO) 70.3 % (40.0-77.0); PLATELET COUNT (AUTO) 97 K/uL (130-400); RED BLOOD CELL COUNT(AUTO) 3.06 MIL/uL (4.00-5.50); RED CELL DISTRIBUTION WIDTH 14.7 % (11.0-15.5); WHITE BLOOD COUNT (AUTO) 5.3 K/uL (4.8-10.8)
[2020-04-09 17:54] LABS: CREATININE 4.2 mg/dL (0.5-1.5); POTASSIUM 4.1 mmol/L (3.5-5.1)
[2020-04-09 17:59] LABS: ALBUMIN 2.9 g/dL (3.5-5.0); BILIRUBIN,TOTAL 0.7 mg/dL (0.2-1.0); TOTAL PROTEIN, SERUM 7.3 g/dL (6.0-8.3)
[2020-04-09] MEDS ORDERED: MORPHINE SULFATE 4 MG/1ML SYG ONE ×2 (18:08→18:48)
[2020-04-09] MEDS ORDERED: SODIUM CHLORIDE 0.9% 1000ML 1,000 ML IV ONE (18:08)
[2020-04-09] MEDS ORDERED: ONDANSETRON HCL 4 MG/2 ML VIAL ONE (18:08)
[2020-04-09 18:48] LABS: APPEARANCE,URINE Cloudy (CLEAR); BILIRUBIN,URINE Negative (NEGATIVE); COLOR,URINE Yellow (YELLOW); GLUCOSE, URINE (UA) Negative (NEGATIVE); KETONES,URINE Negative (NEGATIVE); LEUKOCYTE ESTERASE ,URINE Moderate (NEGATIVE); NITRATE,URINE Negative (NEGATIVE); OCCULT BLOOD,URINE Small (NEGATIVE); PROTEIN,URINE 300 mg/dL (NEGATIVE)
[2020-04-09 19:00] LABS: BACTERIA,URINE Few /HPF (None Seen); MUCUS,URINE Few LPF (None Seen); SQUAMOUS EPITHELIAL CELL,UR Many /HPF (0-2); TRANSITIONAL EPI CELLS,URINE Few /HPF (None Seen)
[2020-04-09] MEDS ORDERED: ASPIRIN 325 MG TABLET PO STA (19:10)
[2020-04-09] MEDS ORDERED: MORPHINE SULFATE 2 MG/ML 1ML SYG IV PRN (19:15)
[2020-04-09] MEDS ORDERED: NITROGLYCERIN 0.4 MG SL TAB SL PRN (19:15)
[2020-04-09] MEDS ORDERED: LACTULOSE 20 GM/30 ML UDCUP PO PRN (19:15)
[2020-04-09] MEDS ORDERED: ONDANSETRON HCL 4 MG/2 ML VIAL IV PRN (19:15)
[2020-04-09] MEDS ORDERED: ACETAMINOPHEN 325 MG TAB PO PRN ×2 (19:15)
[2020-04-09] MEDS ORDERED: NITROGLYCERIN 0.4 MG SL TAB SL ONE (19:24)
[2020-04-09] MEDS ORDERED: SODIUM CHLORIDE 0.9% 100 ML IV ONE (19:26)
[2020-04-09 20:04] LABS: INR 1.24 (0.85-1.15); PARTIAL THROMBOPLASTIN TIME 32.8 SEC (26.3-35.5); PROTHROMBIN TIME 13.3 SEC (9.6-11.6)
[2020-04-09 20:07] LABS: HEMOGLOBIN A1C 10.1 % (4.0-6.0)
[2020-04-09 20:16] LABS: CHOLESTEROL 107 mg/dL (<200); HDL CHOLESTEROL 83 mg/dL (35-85); LDL DIRECT 51 mg/dL (0-99); TRIGLYCERIDES 51 mg/dL (30-200)
[2020-04-09] MEDS ORDERED: LORAZEPAM 2 MG/ML 1 ML VIAL ONE (20:46)
[2020-04-09] MEDS ORDERED: FAMOTIDINE 20MG TAB 20 MG TAB ONE (20:52)
[2020-04-09] MEDS ORDERED: METOPROLOL TARTRATE 25 MG TAB ONE (20:52)
[2020-04-09] MEDS ORDERED: ATORVASTATIN CALCIUM 20 MG TABLET ONE (20:52)
[2020-04-09] MEDS: ATORVASTATIN CALCIUM 20 MG TABLET PO SCH (21:00)
[2020-04-09] MEDS: METOPROLOL TARTRATE 25 MG TAB PO SCH (21:00)
[2020-04-09] MEDS ORDERED: FAMOTIDINE 20MG TAB 20 MG TAB PO SCH (21:00)
[2020-04-09 23:27] LABS: HEMATOCRIT 25.6 % (36-48)
[2020-04-09] MEDS: INSULIN HUMULIN R 100 UNIT/ML 3ML SQ SCH (23:53)
[2020-04-09 23:59] VITALS: BP 115/44
[2020-04-10 03:43] VITALS: BP 112/44
[2020-04-10 04:25] LABS: HEMATOCRIT 26.9 % (36-48)
[2020-04-10] MEDS: INSULIN HUMULIN R 100 UNIT/ML 3ML SQ SCH ×3 (05:39→16:26)
[2020-04-10 08:00] VITALS: BP 115/45
[2020-04-10] MEDS: ASPIRIN 81MG TAB.CHEW PO SCH (09:00)
[2020-04-10] MEDS ORDERED: PANTOPRAZOLE 40 MG/VIAL IVP SCH (09:00)
[2020-04-10 09:40] LABS: CREATININE 4.9 mg/dL (0.5-1.5); POTASSIUM 4.6 mmol/L (3.5-5.1)
[2020-04-10 09:46] LABS: INR 1.26 (0.85-1.15); PROTHROMBIN TIME 13.5 SEC (9.6-11.6)
[2020-04-10 09:51] LABS: BASOPHILS % (AUTO) 1.2 % (0.0-5.0); EOSINOPHILS % (AUTO) 2.4 % (0.0-8.0); HEMATOCRIT 30.7 % (36-48); LYMPHOCYTES % (AUTO) 24.9 % (21.0-51.0); MEAN CORPUSCULAR HEMOGLOBIN 32.8 pg (27.0-33.0); MEAN CORPUSCULAR HGB CONC 32.2 g/dL (32.0-36.0); MEAN CORPUSCULAR VOLUME 101.7 fL (79-99); MONOCYTES % (AUTO) 17.4 % (3.0-13.0); NEUTROPHILS % (AUTO) 53.6 % (40.0-77.0); PLATELET COUNT (AUTO) 84 K/uL (130-400); RED BLOOD CELL COUNT(AUTO) 3.02 MIL/uL (4.00-5.50); RED CELL DISTRIBUTION WIDTH 14.7 % (11.0-15.5); WHITE BLOOD COUNT (AUTO) 4.1 K/uL (4.8-10.8)
[2020-04-10] MEDS: METOPROLOL TARTRATE 25 MG TAB PO SCH ×2 (10:05→20:35)
[2020-04-10] MEDS ORDERED: APIX2.5T PO (11:37)
[2020-04-10] MEDS ORDERED: ASPI-1197 PO (11:37)
[2020-04-10] MEDS ORDERED: FE F1CAP8 PO (11:37)
[2020-04-10] MEDS ORDERED: METO25TA6 PO (11:38)
[2020-04-10 12:00] VITALS: BP 141/48
--- NOTE | 2020-04-10 12:02 | NUR ---
DCP CM spoke to pt's daughter Qiun Azul [phone] dicussed dc plans. Pt is assist with ADL's, lives at home with daughter. Pt has a walker, hospital bed, cane, shower chair, cpap, rollator walker, provider 35hrs/wk, goes to [facility] TTS @0100, uses [facility] to and from dialysis center if daughter unable to take pt. Denies nay other equipments/services. Feels safe to go back home, daughter able to assist with transportation and needs as necessary. DC plan to home once stable. CM to cont to follow up. Addendum: 04/10/20 at 1204 by MILA COLEMAN LVN CM Amended: Links added.
--- NOTE | 2020-04-10 12:17 | NUR ---
RD NOTIFICATION Pt admitted with Gall Bladder Sludge, Chest Pain, GI Bleed. Pt with abdominal pain for months, N/V/D, soft dark stools as per EMR. NPO pending Surgical and Gastroenterology evaluations. Pt with ESRD, Dialysis in place. Recommend continue POC/NPO Recommend Altered means nutrition if NPO >3-5 days Recommend advance diet as tolerated to GI Soft/[place] as medically feasible RD to continue to monitor. Please notify as additional nutrition concerns arise. Thank you. Addendum: 04/10/20 at [address] Amended: Links added.
--- NOTE | 2020-04-10 14:44 | NUR ---
1300 spoke to daughter Quin via phone([phone]) received verbal consent for IM Letter, I faxed IM Letter to [phone] and placed in chart under consent tab. BPCI Letter given to patient as well.
[2020-04-10 16:00] VITALS: BP 144/52
--- NOTE | 2020-04-10 16:20 | NUR ---
CONFUSED PATIENT CONFUSED AND TRYING TO GET OUT OF BED. ALERT TO PERSON ONLY. ORDER OBTAINED FOR 1:1 SITTER, INFORMED CHARGE NURSE MELO MCBRIDE, NO SITTER AVAILABLE AT THIS TIME.
[2020-04-10] MEDS ORDERED: MORPHINE SULFATE 2 MG/ML 1ML SYG IV PRN (17:00)
[2020-04-10] MEDS ORDERED: GLUCAGON 1MG KIT 1 MG ML IM PRN (17:00)
[2020-04-10] MEDS ORDERED: DEXTROSE 50%-WATER 50 ML DISP.SYRIN IV PRN (17:00)
[2020-04-10] MEDS ORDERED: DEXTROSE 5 %-0.45 % NACL 1,000 ML IV ONE (17:36)
[2020-04-10] MEDS: DEXTROSE 5 %-0.45 % NACL 1,000 ML IV SCH ×2 (17:46→22:33)
[2020-04-10] MEDS ORDERED: HALOPERIDOL 1 MG TABLET PO SCH (18:15)
[2020-04-10 19:55] VITALS: BP 120/42
[2020-04-10] MEDS: ATORVASTATIN CALCIUM 20 MG TABLET PO SCH (20:35)
[2020-04-10 23:00] VITALS: BP 149/55
[2020-04-11 03:13] VITALS: BP 135/67
[2020-04-11] MEDS: DEXTROSE 5 %-0.45 % NACL 1,000 ML IV SCH ×4 (04:32→22:52)
--- NOTE | 2020-04-11 05:36 | NUR ---
Patient has 4 episodes of small dark mucoid stool,pericare provided.V/S stable.Patient for EGD today.Patient resting well, respirations even and nonlabored on 3L/NC cannula.V/S stable.
--- NOTE | 2020-04-11 05:44 | NUR ---
Patient has not voided this shift,she is NPO and had 4 mucoid dark stool ,No tenderness noted around bladder area.Bladder scan done and showed 37ml of urine.OFELIA Chris notified.
[2020-04-11] MEDS: INSULIN HUMULIN R 100 UNIT/ML 3ML SQ SCH ×4 (06:00→17:44)
[2020-04-11 06:06] LABS: BASOPHILS % (AUTO) 0.3 % (0.0-5.0); HEMATOCRIT 26.4 % (36-48); LYMPHOCYTES % (AUTO) 23.3 % (21.0-51.0); MEAN CORPUSCULAR HEMOGLOBIN 31.9 pg (27.0-33.0); MEAN CORPUSCULAR HGB CONC 32.6 g/dL (32.0-36.0); MEAN CORPUSCULAR VOLUME 97.8 fL (79-99); MONOCYTES % (AUTO) 15.3 % (3.0-13.0); NEUTROPHILS % (AUTO) 60.8 % (40.0-77.0); PLATELET COUNT (AUTO) 96 K/uL (130-400); RED CELL DISTRIBUTION WIDTH 14.6 % (11.0-15.5); WHITE BLOOD COUNT (AUTO) 3.9 K/uL (4.8-10.8)
[2020-04-11 06:21] LABS: ALBUMIN 2.5 g/dL (3.5-5.0); BILIRUBIN,TOTAL 0.6 mg/dL (0.2-1.0); POTASSIUM 4.9 mmol/L (3.5-5.1); TOTAL PROTEIN, SERUM 6.2 g/dL (6.0-8.3)
[2020-04-11] MEDS: PANTOPRAZOLE SODIUM 80 MG in SODIUM CHLORIDE 0.9% 100 ML IV SCH ×2 (06:30→10:02)
--- NOTE | 2020-04-11 06:55 | NUR ---
Patient transported to GI lab foir EGD today,report given to GI lab nurse.Patient asleep,respirations even and nonlabored on 3 L/NC.Patient moanswhen being moved.
[2020-04-11 08:13] LABS: HEPATITIS A ANTIBODY IGM Negative (Negative); HEPATITIS B CORE IGM Negative (Negative); HEPATITIS Bs ANTIGEN SCREEN P Negative (Negative)
[2020-04-11 08:15] LABS: % IRON SATURATION 8.8 % (22-44)
[2020-04-11] MEDS ORDERED: CEFTRIAXONE SODIUM 1 GM IVP SCH (08:45)
[2020-04-11] MEDS: ASPIRIN 81MG TAB.CHEW PO SCH (09:00)
[2020-04-11] MEDS: METOPROLOL TARTRATE 25 MG TAB PO SCH ×2 (09:00→21:00)
[2020-04-11] MEDS: NITROGLYCERIN 1GM/1 INCH PACKET TD SCH ×2 (09:29→16:41)
[2020-04-11] MEDS: IRON SUCROSE COMPLEX 100 MG in SODIUM CHLORIDE 0.9% 50 ML IV SCH (09:29)
[2020-04-11 11:00] VITALS: BP 165/59
[2020-04-11] MEDS ORDERED: EPOETIN ALFA 10,000 UNIT/ML VIAL SQ SCH (13:00)
[2020-04-11] MEDS: CEPHALEXIN 250 MG CAPSULE PO SCH (17:00)
[2020-04-11] MEDS ORDERED: LACTULOSE 20 GM/30 ML UDCUP PR ONE (19:45)
[2020-04-11 19:50] VITALS: BP 145/51
--- NOTE | 2020-04-11 20:15 | NUR ---
PM Assessment Received pt noted lethargic with Ammonia 119, scheduled for a Lactulose enema. Pt noted to response by moaning to a chest rub stimulation, attempt to open her eyes, D51/2 NS at 40cc & Protonix drip at 10cc/hr infusing well. Pt noted with small amount of mucoid dark brown stool. Routine assessment done, turning Q 2 will be observe. Pt remain with 1:[address]
[2020-04-11] MEDS: ATORVASTATIN CALCIUM 20 MG TABLET PO SCH (21:00)
[2020-04-11] MEDS ORDERED: SODIUM CHLORIDE 0.9% 100 ML IV ONE (23:15)
[2020-04-11 23:42] VITALS: BP 143/55
[2020-04-12] MEDS: CEPHALEXIN 250 MG CAPSULE PO SCH ×4 (00:45→17:32)
[2020-04-12] MEDS: NITROGLYCERIN 1GM/1 INCH PACKET TD SCH ×3 (00:45→16:28)
[2020-04-12] MEDS: PANTOPRAZOLE SODIUM 80 MG in SODIUM CHLORIDE 0.9% 100 ML IV SCH ×3 (02:13→21:02)
[2020-04-12 03:40] VITALS: BP 142/53
[2020-04-12] MEDS: INSULIN HUMULIN R 100 UNIT/ML 3ML SQ SCH ×4 (06:00→18:00)
[2020-04-12 06:23] LABS: BASOPHILS % (AUTO) 0.3 % (0.0-5.0); EOSINOPHILS % (AUTO) 0.3 % (0.0-8.0); HEMATOCRIT 26.4 % (36-48); LYMPHOCYTES % (AUTO) 9.4 % (21.0-51.0); MEAN CORPUSCULAR HEMOGLOBIN 31.8 pg (27.0-33.0); MEAN CORPUSCULAR VOLUME 96.4 fL (79-99); MONOCYTES % (AUTO) 8.6 % (3.0-13.0); NEUTROPHILS % (AUTO) 81.2 % (40.0-77.0); PLATELET COUNT (AUTO) 105 K/uL (130-400); RED BLOOD CELL COUNT(AUTO) 2.74 MIL/uL (4.00-5.50); RED CELL DISTRIBUTION WIDTH 14.5 % (11.0-15.5)
[2020-04-12 06:53] LABS: ALBUMIN 2.5 g/dL (3.5-5.0); BILIRUBIN,TOTAL 0.7 mg/dL (0.2-1.0); CREATININE 4.9 mg/dL (0.5-1.5); POTASSIUM 3.8 mmol/L (3.5-5.1); TOTAL PROTEIN, SERUM 6.3 g/dL (6.0-8.3)
[2020-04-12 07:55] VITALS: BP 130/65
[2020-04-12] MEDS: IRON SUCROSE COMPLEX 100 MG in SODIUM CHLORIDE 0.9% 50 ML IV SCH (08:54)
[2020-04-12] MEDS: METOPROLOL TARTRATE 25 MG TAB PO SCH ×2 (08:55→21:01)
[2020-04-12] MEDS: ASPIRIN 81MG TAB.CHEW PO SCH (08:55)
[2020-04-12] MEDS ORDERED: IRON SUCROSE COMPLEX 100 MG in SODIUM CHLORIDE 0.9% 50 ML IV SCH (09:00)
[2020-04-12] MEDS ORDERED: COMPOUND IV REFRIGERATED 1 EACH IVSOLN MISC PRN (11:15)
[2020-04-12 11:30] VITALS: BP 140/68
[2020-04-12] MEDS ORDERED: COMPOUND IV MISC 1 EACH IVSOLN MISC PRN (11:30)
[2020-04-12] MEDS ORDERED: LACTULOSE 20 GM/30 ML UDCUP PO SCH (14:00)
[2020-04-12] MEDS: LACTULOSE 20 GM/30 ML UDCUP PO SCH ×2 (14:00→21:02)
[2020-04-12 15:30] VITALS: BP 142/54
[2020-04-12 20:40] VITALS: BP 137/52
[2020-04-12] MEDS: ATORVASTATIN CALCIUM 20 MG TABLET PO SCH (21:01)
[2020-04-12] MEDS: DEXTROSE 5 %-0.45 % NACL 1,000 ML IV SCH (21:02)
[2020-04-13 00:11] VITALS: BP 120/48
[2020-04-13] MEDS: CEPHALEXIN 250 MG CAPSULE PO SCH ×3 (00:28→16:48)
[2020-04-13] MEDS: NITROGLYCERIN 1GM/1 INCH PACKET TD SCH ×3 (00:29→16:49)
[2020-04-13] MEDS: INSULIN HUMULIN R 100 UNIT/ML 3ML SQ SCH ×4 (00:31→17:10)
[2020-04-13] MEDS: LACTULOSE 20 GM/30 ML UDCUP PO SCH ×4 (03:09→20:32)
--- NOTE | 2020-04-13 04:00 | NUR ---
CARE Pt remains lethargic,moans occasionally.Localizes to deep painful stimuli.Pt receiving lactulose via ngt,having large amount of dark bloody stool.Incontinent care rendered per staff.
[2020-04-13 04:18] VITALS: BP 125/45
[2020-04-13 05:15] LABS: ALBUMIN 2.2 g/dL (3.5-5.0); BILIRUBIN,TOTAL 0.7 mg/dL (0.2-1.0); CREATININE 6.2 mg/dL (0.5-1.5); POTASSIUM 4.1 mmol/L (3.5-5.1)
[2020-04-13 06:06] LABS: BASOPHILS % (AUTO) 0.1 % (0.0-5.0); HEMATOCRIT 24.3 % (36-48); LYMPHOCYTES % (AUTO) 8.8 % (21.0-51.0); MEAN CORPUSCULAR HEMOGLOBIN 32.8 pg (27.0-33.0); MEAN CORPUSCULAR HGB CONC 33.3 g/dL (32.0-36.0); MEAN CORPUSCULAR VOLUME 98.4 fL (79-99); MONOCYTES % (AUTO) 7.7 % (3.0-13.0); NEUTROPHILS % (AUTO) 82.9 % (40.0-77.0); PLATELET COUNT (AUTO) 118 K/uL (130-400); RED BLOOD CELL COUNT(AUTO) 2.47 MIL/uL (4.00-5.50); RED CELL DISTRIBUTION WIDTH 14.5 % (11.0-15.5); WHITE BLOOD COUNT (AUTO) 7.8 K/uL (4.8-10.8)
--- NOTE | 2020-04-13 07:59 | NUR ---
DR. Taj ANDERSEN IN ROOM SPEAKING TO PT.; PT. ASKING FOR WATER WITH EYES CLOSED, NO APPROPRIATE RESPONSE TO DR. ANDERSEN. NGT IN PLACE. NO NEW ORDERS RECEIVED.
[2020-04-13] MEDS: METOPROLOL TARTRATE 25 MG TAB PO SCH ×2 (08:17→20:32)
[2020-04-13] MEDS: IRON SUCROSE COMPLEX 100 MG in SODIUM CHLORIDE 0.9% 50 ML IV SCH (08:19)
[2020-04-13 08:31] VITALS: BP 132/48
[2020-04-13] MEDS ORDERED: IRON SUCROSE COMPLEX 100 MG in SODIUM CHLORIDE 0.9% 50 ML IV SCH (09:00)
[2020-04-13] MEDS: PANTOPRAZOLE SODIUM 80 MG in SODIUM CHLORIDE 0.9% 100 ML IV SCH ×3 (09:24→22:08)
--- NOTE | 2020-04-13 10:00 | NUR ---
LOOSE, BROWN BM NOTED. CARE RENDERED AND REPOSITIONED FOR COMFORT. BED LOW, SIDE RAILS UP. ROOM DOOR OPEN, VISIBLE FROM NURSE'S STATION.
[2020-04-13 11:41] VITALS: BP 124/40
--- NOTE | 2020-04-13 11:50 | NUR ---
DR. CRUZ IN ROOM SPEAKING TO PT.
--- NOTE | 2020-04-13 13:18 | NUR ---
HOLD EVAL. Pt WITH ELEVATED AMMONIA LEVEL AT THIS TIME. Pt NOT ABLE TO FOLLOW COMMANDS DESPITE MULTIPLE TACTILE AND VERBAL COMMANDS. HOLD EVAL AT THIS TIME. EVAL TO BE ATTEMPTED TOMORROW. GROUP HOME COUNSELOR COORDINATED WITH NURSE SHANKS. HE VERBALIZED UNDERSTANDING AND COMPLIANCE. Addendum: 04/13/20 at 1322 by CLARENCE MARCOS, [facility] ST Amended: Links added.
--- NOTE | 2020-04-13 15:55 | NUR ---
DR. Td CHUN IN ROOM ASSESSING/SPEAKING TO PT.
--- NOTE | 2020-04-13 16:05 | NUR ---
DR. Td CHUN SPEAKING WITH PT.'S DAUGHTER, WINDY CANDELARIO, VIA TELEPHONE AND UPDATING ON STATUS. QUESTIONS ANSWERED BY DR. CHUN.
[2020-04-13 16:30] VITALS: BP 126/51
[2020-04-13 20:00] VITALS: BP 126/50
[2020-04-13] MEDS: ATORVASTATIN CALCIUM 20 MG TABLET PO SCH (20:32)
[2020-04-14] VITALS (7 sets, daily range): BP systolic 104–118; BP diastolic 37–55
[2020-04-14] MEDS: NITROGLYCERIN 1GM/1 INCH PACKET TD SCH ×5 (00:45→17:28)
[2020-04-14] MEDS: CEPHALEXIN 250 MG CAPSULE PO SCH ×3 (00:58→17:28)
[2020-04-14] MEDS: LACTULOSE 20 GM/30 ML UDCUP PO SCH ×4 (02:24→20:00)
--- NOTE | 2020-04-14 02:44 | NUR ---
MENTAL STATUS Pt.is more alert now,talks inappropriately.Ngt in place,placement verified via auscultation.Hob up 45 degrees.Oral care and incontinent care rendered per staff.
[2020-04-14] MEDS: INSULIN HUMULIN R 100 UNIT/ML 3ML SQ SCH ×4 (05:45→16:59)
[2020-04-14] MEDS: IRON SUCROSE COMPLEX 100 MG in SODIUM CHLORIDE 0.9% 50 ML IV SCH (09:01)
[2020-04-14] MEDS: METOPROLOL TARTRATE 25 MG TAB PO SCH ×2 (09:01→20:52)
--- NOTE | 2020-04-14 11:43 | NUR ---
HOLD EVAL Pt CURRENTLY LETHARGIC AAOX1. Pt WITH DIFFICULTY FOLLOWING COMMANDS. Pt IS AT HIGH RISK FOR ASPIRATION AND IS CURRENTLY NOT AT BASELINE. RECOMMEND CONTINUED NPO. EVALUATION TO BE COMPLETED WHEN CURRENT STATUS IMPROVES. CONFIGURATION MANAGER COORDINATED WITH NURSE GORDON. Addendum: 04/14/20 at 1147 by CLARENCE MARCOS, SPT ST Amended: Links added.
[2020-04-14] MEDS: PANTOPRAZOLE SODIUM 80 MG in SODIUM CHLORIDE 0.9% 100 ML IV SCH (14:30)
--- NOTE | 2020-04-14 15:40 | NUR ---
RD FOLLOW UP Pt NPO x5 days. Pt pending TRAVEL ATTENDANTS evaluation. NGT in place for lactulose. ESRD, Hemodialysis in place. Recommend advance diet as tolerated when medically feasible Recommend altered means nutrition if PO diet not tolerated. RD to follow and continue to monitor. Addendum: 04/14/20 at [address] Amended: Links added.
[2020-04-14] MEDS: ATORVASTATIN CALCIUM 20 MG TABLET PO SCH (20:52)
[2020-04-15] MEDS: CEPHALEXIN 250 MG CAPSULE PO SCH ×3 (02:25→17:16)
[2020-04-15] MEDS: NITROGLYCERIN 1GM/1 INCH PACKET TD SCH ×3 (02:26→16:45)
[2020-04-15] MEDS: PANTOPRAZOLE SODIUM 80 MG in SODIUM CHLORIDE 0.9% 100 ML IV SCH ×3 (02:26→21:14)
[2020-04-15 04:05] VITALS: BP 120/44
[2020-04-15] MEDS: LACTULOSE 20 GM/30 ML UDCUP PO SCH ×4 (04:48→20:00)
[2020-04-15 05:20] LABS: HEMATOCRIT 22.8 % (36-48); LYMPHOCYTES % (AUTO) 13.5 % (21.0-51.0); MEAN CORPUSCULAR HEMOGLOBIN 32.5 pg (27.0-33.0); MEAN CORPUSCULAR HGB CONC 32.5 g/dL (32.0-36.0); MONOCYTES % (AUTO) 8.8 % (3.0-13.0); NEUTROPHILS % (AUTO) 77.2 % (40.0-77.0); NUCLEATED RED BLOOD CELLS 0.6 % (0.0-0.19); PLATELET COUNT (AUTO) 93 K/uL (130-400); RED BLOOD CELL COUNT(AUTO) 2.28 MIL/uL (4.00-5.50); RED CELL DISTRIBUTION WIDTH 14.9 % (11.0-15.5); WHITE BLOOD COUNT (AUTO) 6.5 K/uL (4.8-10.8)
[2020-04-15 05:25] LABS: ALBUMIN 2.4 g/dL (3.5-5.0); CREATININE 5.8 mg/dL (0.5-1.5); POTASSIUM 3.9 mmol/L (3.5-5.1); TOTAL PROTEIN, SERUM 6.1 g/dL (6.0-8.3)
[2020-04-15] MEDS: INSULIN HUMULIN R 100 UNIT/ML 3ML SQ SCH ×4 (05:44→17:34)
[2020-04-15 07:30] VITALS: BP 112/41
--- NOTE | 2020-04-15 10:00 | NUR ---
DYSPHAGIA EVAL COMPLETED. +S/S OF ASPIRATION WITH THIN LIQUIDS. RECOMMEND PUREED, NECTAR-THICK LIQUIDS; PILLS CRUSHED WITH APPLE SAUCE. RECOMMENDATIONS: DYSPHAGIA THERAPY 3-5X WEEK TO INCREASE ORAL MOTOR STRENGTH AND PHARYNGEAL SWALLOW: LTG#1: Pt WILL TOLERATE LEAST RESTRICTIVE DIET TO MEET NUTRITION/HYDRATION WITH NO S/S OF ASPIRATION. LTG#2: SKILLED EDUCATION Pt/FAMILY/STAFF STG#1: Pt WILL PARTICIPATE IN LARYNGEAL ELEVATION/EXCURSION EXERCISES WITH 80% ACCURACY. STG#2: Pt WILL PARTICIPATE IN TONGUE BASE RETRACTION EXERCISES WITH 80% ACCURACY. STG#3: Pt WILL PARTICIPATE IN ORAL MOTOR EXERCISES WITH 80% ACCURACY. STG#4: Pt WILL PARTICIPATE IN THERAPEUTIC TRIALS OF ADVANCED TEXTURES OF [facility] SOFT, THIN LIQUIDS WITH NO OVERT S/S OF ASPIRATION. STG#5: PT WILL UTILIZE SAFE SWALLOW PRECAUTIONS/COMPENSATORY STRATEGIES WITH 100% ACCURACY. STG#6: SKILLED EDUCATION Pt/FAMILY/STAFF. CIRCULAR CLERK COORDINATED CARE WITH NURSE ESPINOZA. Pt AAOX3 AT THE TIME OF THE EVAL WITH MODERATE CUES. Pt WITH DECREASED ATTENTION SPAN AT THIS TIME REQUIRING ASSISTANCE AND COAXING DURING THE MEALS. Addendum: 04/15/20 at 1121 by CLARENCE MARCOS [facility] Amended: Links added.
[2020-04-15] MEDS: IRON SUCROSE COMPLEX 100 MG in SODIUM CHLORIDE 0.9% 50 ML IV SCH (10:27)
[2020-04-15] MEDS: METOPROLOL TARTRATE 25 MG TAB PO SCH ×2 (10:29→21:13)
[2020-04-15 11:30] VITALS: BP 123/46
--- NOTE | 2020-04-15 11:32 | NUR ---
RD UPDATE Pt s/p ST evaluation. Pt with Dysphagia. Recommend adv to Renal Dialysis, Pureed, NTL Diet Order, as medically feasible. Please notify RD as additional nutrition concerns arise. Thank you.
[2020-04-15 16:00] VITALS: BP 120/38
[2020-04-15 20:00] VITALS: BP 106/34
[2020-04-15] MEDS: ATORVASTATIN CALCIUM 20 MG TABLET PO SCH (21:13)
[2020-04-15 23:34] VITALS: BP 120/50
[2020-04-16] MEDS: NITROGLYCERIN 1GM/1 INCH PACKET TD SCH ×3 (01:08→16:34)
[2020-04-16] MEDS: INSULIN HUMULIN R 100 UNIT/ML 3ML SQ SCH ×3 (01:08→12:00)
[2020-04-16] MEDS: CEPHALEXIN 250 MG CAPSULE PO SCH ×3 (01:41→17:03)
[2020-04-16 04:00] VITALS: BP 117/52
[2020-04-16 04:36] LABS: BASOPHILS % (AUTO) 0.2 % (0.0-5.0); LYMPHOCYTES % (AUTO) 10.7 % (21.0-51.0); MEAN CORPUSCULAR HEMOGLOBIN 32.1 pg (27.0-33.0); MEAN CORPUSCULAR HGB CONC 31.3 g/dL (32.0-36.0); MEAN CORPUSCULAR VOLUME 102.6 fL (79-99); MONOCYTES % (AUTO) 7.7 % (3.0-13.0); NEUTROPHILS % (AUTO) 80.5 % (40.0-77.0); NUCLEATED RED BLOOD CELLS 2.3 % (0.0-0.19); PLATELET COUNT (AUTO) 115 K/uL (130-400); RED BLOOD CELL COUNT(AUTO) 2.34 MIL/uL (4.00-5.50); RED CELL DISTRIBUTION WIDTH 15.3 % (11.0-15.5); WHITE BLOOD COUNT (AUTO) 5.6 K/uL (4.8-10.8)
[2020-04-16 04:46] LABS: ALBUMIN 2.2 g/dL (3.5-5.0); BILIRUBIN,TOTAL 0.6 mg/dL (0.2-1.0); CREATININE 7.6 mg/dL (0.5-1.5); POTASSIUM 3.7 mmol/L (3.5-5.1); TOTAL PROTEIN, SERUM 6.1 g/dL (6.0-8.3)
[2020-04-16] MEDS: LACTULOSE 20 GM/30 ML UDCUP PO SCH ×4 (05:00→20:00)
[2020-04-16] MEDS: PANTOPRAZOLE SODIUM 80 MG in SODIUM CHLORIDE 0.9% 100 ML IV SCH ×2 (06:30→17:05)
[2020-04-16 08:00] VITALS: BP 113/40
[2020-04-16] MEDS: IRON SUCROSE COMPLEX 100 MG in SODIUM CHLORIDE 0.9% 50 ML IV SCH (09:00)
[2020-04-16] MEDS: METOPROLOL TARTRATE 25 MG TAB PO SCH ×2 (10:28→21:27)
--- NOTE | 2020-04-16 11:37 | NUR ---
TREATMENT COMPLETED. S: Pt SEATED AT 90 DEGREES IN BED. Pt EASILY AROUSED. Pt AAOX3 AT THIS TIME AND COOPERATIVE DURING THE SESSION. O: Pt CURRENTLY TARGETING DYSPHAGIA TREATMENT GOALS. RESULTS ARE FOLLOWS: Pt WILL TOLERATED THERAPEUTIC TRIALS OF ADVANCED TEXTURES OF THIN LIQUIDS WITH NO OVERT S/S OF ASPIRATION: THROAT CLEAR WITH THIN LIQUIDS VIA CUP SIP X3. Pt WITH NO OVERT S/S OF ASPIRATION WITH NECTAR-THICK LIQUIDS VIA CUP SIP X5. A: Pt WITH IMPROVED ALERTNESS AND PHARYNGEAL RESPONSE TRIGGER DURING MANUAL PALPATION. IMPROVED COORDINATION AT THIS TIME. P: RECOMMEND CONTINUED PUREED, NECTAR-THICK LIQUIDS FOR ALL MEALS AND SNACKS. RE-EVALUATION IS RECOMMENDED PRIOR TO DIET UPGRADE. SKILLED SPEECH THERAPY CONTINUES TO BE RECOMMENDED 3-5XWK. SPORTS TEAM MARKETING INTERN WILL CONTINUE TO FOLLOW Pt. Addendum: 04/16/20 at 1145 by CLARENCE MARCOS, [facility] Amended: Links added.
[2020-04-16 12:00] VITALS: BP 122/55
--- NOTE | 2020-04-16 12:14 | NUR ---
CM NOTE/REFUSED SNF [facility] RN, PRIMARY NURSE FOR PATIENT CALLED ME AND STATES FAMILY AND PATIENT REFUSING SNF PLACEMENT. THA SANTIAGO MADE AWARE. PATIENT IS SEMI INDEPENDENT AND LIVES WITH DAUGHTER AND HAS MULTIPLE DME EQUIPMENT IN USE WELL PROVIDER FOR 35 HR AND ATTENDS DIALYSIS WITH HELP OF FAMILY TRANSPORTATION. DCP HOME.
[2020-04-16] MEDS ORDERED: ALBUMIN (HUMAN) 25% 100 ML IV PRN (13:45)
[2020-04-16 16:00] VITALS: BP 94/45
--- NOTE | 2020-04-16 16:00 | NUR ---
NITRO NITRO PASTE HELD FOR SYSTOLIC BP < 100, PT DENIES CHEST PAIN. PT ON DIALYSIS TREATMENT AT THIS TIME
[2020-04-16 20:00] VITALS: BP 98/37
[2020-04-16] MEDS: ATORVASTATIN CALCIUM 20 MG TABLET PO SCH (21:27)
[2020-04-17] VITALS: BP 131/87
[2020-04-17] MEDS: PANTOPRAZOLE SODIUM 80 MG in SODIUM CHLORIDE 0.9% 100 ML IV SCH ×2 (00:25→12:30)
[2020-04-17] MEDS: NITROGLYCERIN 1GM/1 INCH PACKET TD SCH ×3 (00:45→16:20)
[2020-04-17] MEDS: LACTULOSE 20 GM/30 ML UDCUP PO SCH ×3 (02:00→14:00)
[2020-04-17 04:00] VITALS: BP 105/48
[2020-04-17 05:58] LABS: BASOPHILS % (AUTO) 0.2 % (0.0-5.0); EOSINOPHILS % (AUTO) 0.2 % (0.0-8.0); LYMPHOCYTES % (AUTO) 13.3 % (21.0-51.0); MEAN CORPUSCULAR HEMOGLOBIN 32.3 pg (27.0-33.0); MEAN CORPUSCULAR HGB CONC 31.3 g/dL (32.0-36.0); MEAN CORPUSCULAR VOLUME 103.1 fL (79-99); MONOCYTES % (AUTO) 9.6 % (3.0-13.0); NEUTROPHILS % (AUTO) 75.5 % (40.0-77.0); NUCLEATED RED BLOOD CELLS 2.9 % (0.0-0.19); PLATELET COUNT (AUTO) 90 K/uL (130-400); RED BLOOD CELL COUNT(AUTO) 2.23 MIL/uL (4.00-5.50); RED CELL DISTRIBUTION WIDTH 15.3 % (11.0-15.5)
[2020-04-17] MEDS: CEPHALEXIN 250 MG CAPSULE PO SCH ×3 (06:08→17:49)
[2020-04-17 06:22] LABS: ALBUMIN 2.6 g/dL (3.5-5.0); BILIRUBIN,TOTAL 0.8 mg/dL (0.2-1.0); CREATININE 5.2 mg/dL (0.5-1.5); POTASSIUM 3.4 mmol/L (3.5-5.1); TOTAL PROTEIN, SERUM 5.8 g/dL (6.0-8.3)
[2020-04-17 07:00] VITALS: BP 119/39
[2020-04-17] MEDS: METOPROLOL TARTRATE 25 MG TAB PO SCH (08:29)
[2020-04-17] MEDS: IRON SUCROSE COMPLEX 100 MG in SODIUM CHLORIDE 0.9% 50 ML IV SCH (08:30)
[2020-04-17] MEDS ORDERED: LACT10SO PO (08:58)
[2020-04-17 11:00] VITALS: BP 107/74
--- NOTE | 2020-04-17 11:31 | NUR ---
CM NOTE/[facility] CALLED [facility], PATIENT STILL ACTIVE, TO BRING DISCHARGE PAPERWORK TO NEXT SCHEDULED DIALYSIS SESSION FOR REVIEW. DCP HOME TODAY
--- NOTE | 2020-04-17 13:53 | NUR ---
RD FOLLOW UP Pt tolerating 75gm CC, Puree, NTL diet order with no report of GI distress. Pt responds "yes" when asked if good appetite, however, Pt very lethargic at time of visit and fell asleep in middle of interview. RD unable to provide nutrition education. Recommend add Renal Dialysis diet modification RD to continue to monitor. Please notify as additional nutrition concerns arise. Thank you. Addendum: 04/17/20 at [address] Amended: Links added.
[2020-04-17 16:00] VITALS: BP 102/34
[2020-04-17 17:35] VITALS: BP 110/49
--- NOTE | 2020-04-17 18:08 | NUR ---
NOTIFIED PT.'S DAUGHTER, WINDY CANDELARIO, PT. HAS BEEN DISCHARGED AND READY TO GO HOME. DAUGHTER STATES WILL BE IN TO PHOTOGRAPHIC ENGINEER PT. Addendum: 04/17/20 at 1841 by DIMITRIS HOFF RN RN DISCHARGE INSTRUCTIONS GIVEN TO PT.'S DAUGHTER INCLUDING NEED FOR LACTULOSE PRESCRIBED AND PRESCRIPTION FAXED TO PHARMACY, VERBALIZED UNDERSTANDING.
--- NOTE | 2020-04-17 20:37 | NUR ---
RECEIVED CALL FROM PT.'S DAUGHTER, WINDY CANDELARIO, ASKING RE:PT.'S WEAKNESS AND WHY SHE IS BEING DISCHARGED HOME. INFORMED PT.'S DAUGHTER RE:PT. AND FAMILY'S REFUSAL FOR SNF PLACEMENT, PER CM DOCUMENTATION. DAUGHTER VERBALIZED UNDERSTANDING OF REFUSAL FOR SNF PLACEMENT AND INFORMED FOR INDICATION TO RETURN TO HOSPITAL ED IF EXPERIENCED SOB OR UNABLE TO LIE FLAT AT HOME.
== END 2020-04-17 20:15 | disposition home or self-care (01) | DRG 377 ==
LOC: EDH 17:10 → INTOOBSV 19:10 → OBSVTOIN 19:10 → UNDOADMOB 19:10 → 4BH 19:10 → EDHIP 19:10 → 4BH 23:30 → EDHIP 23:30
PROVIDERS: ADMIT Internal Medicine; ATTEND Internal Medicine
PROC: 5A1D70Z Performance of Urinary Filtration, Intermittent, Less than 6 Hours Per Day (ICD-10-PCS; principal; 2020-04-11)
PROC: 5A1D70Z Performance of Urinary Filtration, Intermittent, Less than 6 Hours Per Day (ICD-10-PCS; 2020-04-14)
PROC: 5A1D70Z Performance of Urinary Filtration, Intermittent, Less than 6 Hours Per Day (ICD-10-PCS; 2020-04-16)
DX: K92.2 Gastrointestinal hemorrhage, unspecified (principal); N18.6 End stage renal disease; N39.0 Urinary tract infection, site not specified; I12.0 Hypertensive chronic kidney disease with stage 5 chronic kidney disease or end stage renal disease; I24.9 Acute ischemic heart disease, unspecified; K72.90 Hepatic failure, unspecified without coma; G89.29 Other chronic pain; D50.0 Iron deficiency anemia secondary to blood loss (chronic); K82.8 Other specified diseases of gallbladder; R79.89 Other specified abnormal findings of blood chemistry; K76.0 Fatty (change of) liver, not elsewhere classified; J44.9 Chronic obstructive pulmonary disease, unspecified; I70.0 Atherosclerosis of aorta; Z99.2 Dependence on renal dialysis; Z95.1 Presence of aortocoronary bypass graft; Z90.710 Acquired absence of both cervix and uterus; I25.10 Atherosclerotic heart disease of native coronary artery without angina pectoris; Z87.891 Personal history of nicotine dependence; Z83.3 Family history of diabetes mellitus; Z82.5 Family history of asthma and other chronic lower respiratory diseases; Z82.49 Family history of ischemic heart disease and other diseases of the circulatory system; Z82.3 Family history of stroke; Z82.0 Family history of epilepsy and other diseases of the nervous system; Z81.2 Family history of tobacco abuse and dependence
CPT/HCPCS: 36415; 70450; 71045; 74176; 76705; 78580; 80048; 80053; 80061; 80074; 81001; 82140; 82270; 82550; 82948; 83036; 83540; 83550; 84484; 85014; 85018; 85025; 85378; 85610; 85730; 86850; 86900; 86901; 86922; 87088; 90935; 92507; 92610; 93005; 93306; 93356; 93970; 97039; 99291; A9540; C9113; G0378; J0696; J0885; J1756; J1815; J2060; J2270; J2405; J7030; J7042; P9046